=== PATIENT | female | born 1965 | race Caucasian/White ===

== ENCOUNTER 2016-08-10 18:29 | Emergency (ER) | payer SELFPAY ==
[2016-08-10] MEDS ORDERED: XYLOCAINE 1% HCL 20 ML MDV IJ ONE (19:44)
[2016-08-10] MEDS ORDERED: XYLOCAINE 1% HCL 20 ML MDV ONE (19:47)
[2016-08-10] MEDS ORDERED: Adacel Vial IM ONE (19:49)
--- NOTE | 2016-08-10 20:05 | ERPHSYRPT ---
- History of Present Illness Time Seen by Provider: 08/10/16 19:44 Source: patient, family Exam Limitations: no limitations Patient Subjective Stated Complaint: pt states she has a fish hook stuck in her thumb. states she thinks its all the way to the bone. Triage Nursing Assessment: pt alert and oriented, asnwers questions approp. skin pink warm and dry. respirations nonlabored with lungs cta. pt ambulatory with steady gait noted. fishing lure stuck in rt thumb. no bleeding noted. Physician History: The patient is a 50-year-old right-handed female with her daughter complaining of getting a fishhook stuck in her right thumb while fishing just prior to arrival. She denies numbness or tingling. Her tetanus vaccination is unknown. Timing/Duration: today Quality: painful Severity: mild Location: hands (right thumb) Possible Causes: other (fish hook) Allergies/Adverse Reactions: codeine Allergy (Intermediate, Verified 01/15/16 09:20) Rash Penicillins Allergy (Intermediate, Verified 01/15/16 09:20) swelling, hives naproxen sodium [From Aleve] Allergy (Mild, Verified 01/15/16 09:20) I WAS GOING TO ibuprofen Allergy (Verified 08/10/16 18:52) morphine Adverse Reaction (Verified 01/15/16 09:20) increased hr, n/v Home Medications: No Home Meds 1 ea UD 08/10/16 [History] Hx Tetanus, Diphtheria Vaccination/Date Given: No Hx Influenza Vaccination/Date Given: No Hx Pneumococcal Vaccination/Date Given: No Immunizations Up to Date: No - Review of Systems Constitutional: No Fever, No Chills Eyes: No Symptoms Ears, Nose, & Throat: No Symptoms Respiratory: No Cough, No Dyspnea Cardiac: No Chest Pain, No Edema, No Syncope Abdominal/Gastrointestinal: No Abdominal Pain, No Nausea, No Vomiting, No Diarrhea Genitourinary Symptoms: No Dysuria Musculoskeletal: No Back Pain, No Neck Pain Skin: Other (FB) Neurological: No Dizziness, No Focal Weakness, No Sensory Changes Psychological: No Symptoms Endocrine: No Symptoms Hematologic/Lymphatic: No Symptoms Immunological/Allergic: No Symptoms All Other Systems: Reviewed and Negative - Past Medical History Pertinent Past Medical History: Yes Neurological History: Seizures Cardiac History: Arrhythmia Endocrine Medical History: Hypoglycemia - Past Surgical History Past Surgical History: Yes Female Surgical History: Tubal Ligation, Other - Social History Smoking Status: Current every day smoker How long have you smoked: YRS Exposure to second hand smoke: Yes Drug Use: none Patient Lives Alone: No - Female History Hx Last Menstrual Period: post Hx Now: No - Nursing Vital Signs Nursing Vital Signs: Initial Vital Signs Temperature 97.5 F Temperature Source Oral Pulse Rate 84 Respiratory Rate 22 Blood Pressure [Left Arm] 141/104 Pain Intensity 5 - Physical Exam General Appearance: no apparent distress, alert Eye Exam: PERRL/EOMI, eyes nml inspection Ears, Nose, Throat Exam: normal ENT inspection, pharynx normal, moist mucous membranes Neck Exam: normal inspection, non-tender, supple, full range of motion Respiratory Exam: normal breath sounds, lungs clear, No respiratory distress Cardiovascular Exam: regular rate/rhythm, normal heart sounds Gastrointestinal/Abdomen Exam: soft, mass, No tenderness Pelvic Exam: not done Rectal Exam: not done Back Exam: normal inspection, normal range of motion, No CVA tenderness, No vertebral tenderness Extremity Exam: normal inspection, normal range of motion Neurologic Exam: alert, oriented x 3, cooperative, normal mood/affect, sensation nml, No motor deficits Skin Exam: other (fishhook embedded in mid right thumb) SpO2 Interpretation: normal SpO2: 97 Oxygen Delivery: Room Air - Progress Progress: improved Progress Note: 08/10/16 20:08 10 mL of 1% lidocaine was injected in the proximal right thumb for a digital block. The shaft of the hook was cut. The hook was driven through and removed. Patient tolerated the procedure well. There were no complications. Counseled pt/family regarding: diagnosis - Departure Time of Disposition: 20:10 Departure Disposition: Home Clinical Impression: [place] injury to finger Condition: Stable Critical Care Time: No Additional Instructions: You had a fishhook embedded in her right thumb that was successfully removed. Take clindamycin 300 mg 3 times a day for 10 days. Take Tylenol as needed. Prescriptions: Clindamycin HCl 1 cap PO TID #30 capsule
[2016-08-10 20:26] VITALS: BP 118/70; PULSE 70; O2SAT 100
== END 2016-08-10 20:26 | disposition home or self-care (01) ==
LOC: ED 18:29
DX: S61.041A Puncture wound with foreign body of right thumb without damage to nail, initial encounter (principal)
CPT/HCPCS: 90471; 90715; 99283; 99284

== ENCOUNTER 2017-08-09 03:12 | Emergency (ER) | payer SELFPAY ==
[2017-08-09 03:23] VITALS: BP 158/104; PULSE 80; O2SAT 99
[2017-08-09] MEDS: CLEOCIN 150 MG CAPSULE PO ONE (03:44)
[2017-08-09] MEDS ORDERED: CLEOCIN 150 MG CAPSULE ONE (03:44)
--- NOTE | 2017-08-09 03:45 | ERPHSYRPT ---
- History of Present Illness Time Seen by Provider: 08/09/17 03:30 Source: patient Exam Limitations: no limitations Patient Subjective Stated Complaint: Pt arrives to ER with c/o jaw pain intermittently for past couple weeks states started in left jaw for 1 week with lump in jaw, moved to right side with lump, now back to left side no lump. Denies fever. States has 3 bad teeth. Triage Nursing Assessment: see above Physician History: Pt is c/o intermittent bilateral jaw pain for about 3 weeks. She has severe caries, noticed swelling of her left jaw 3 weeks ago, it has resolved after few days of drainage. She had similar scenario last week on the right side. She denies fever, severe headaches, vomiting, cough SOB, other complaints, she did not see a dentist, did not take antibiotics, or painkillers. She denies current swelling, she speaks in sentences, no stridor, wheezing or difficulty breathing. Timing/Duration: gradual onset Severity: severe ENT Location: facial, dental Prearrival Treatment: no prearrival treatment Modifying Factors: Improves With: nothing Associated Symptoms: jaw pain Allergies/Adverse Reactions: codeine Allergy (Intermediate, Verified 08/09/17 03:23) Rash Penicillins Allergy (Intermediate, Verified 08/09/17 03:23) swelling, hives naproxen sodium [From Aleve] Allergy (Mild, Verified 08/09/17 03:23) I WAS GOING TO ibuprofen Allergy (Verified 08/09/17 03:23) morphine Adverse Reaction (Verified 08/09/17 03:23) increased hr, n/v Home Medications: No Home Meds [No Home Meds] 1 [facility] ZACKERY 08/10/16 [History] Hx Tetanus, Diphtheria Vaccination/Date Given: No Hx Influenza Vaccination/Date Given: No Hx Pneumococcal Vaccination/Date Given: No - Review of Systems Constitutional: No Symptoms Ears, Nose, & Throat: Other (toothache, jaw pain) Respiratory: No Symptoms Abdominal/Gastrointestinal: No Symptoms All Other Systems: Reviewed and Negative - Past Medical History Pertinent Past Medical History: Yes Neurological History: Seizures Cardiac History: Arrhythmia Endocrine Medical History: Hypoglycemia - Past Surgical History Past Surgical History: Yes Female Surgical History: Tubal Ligation, Other - Social History Smoking Status: Current every day smoker How long have you smoked: YRS Exposure to second hand smoke: No Drug Use: none Patient Lives Alone: No - Female History Hx Now: No - Nursing Vital Signs Nursing Vital Signs: Initial Vital Signs Temperature 97.5 F 08/09/17 03:16 Pulse Rate 80 08/09/17 03:16 Respiratory Rate 18 08/09/17 03:16 Blood Pressure 158/104 08/09/17 03:16 O2 Sat by Pulse Oximetry 99 08/09/17 03:16 Pain Scale Pain Intensity 7 - Physical Exam General Appearance: no apparent distress Eye Exam: bilateral eye: PERRL, EOMI Ear Exam: bilateral ear: canal normal, TM normal Nasal Exam: normal inspection Throat Exam: pharynx normal, dental tenderness (severe caries on both sides, no gum swelling, purulent discharge), moist mucus membranes, No mandibular swelling , No maxillary swelling, No pharynx swelling, No tongue swollen, No tonsillar swelling, No voice changes Neck Exam: normal inspection, non-tender, supple, trachea midline, No JVD, No lymphadenopathy (R), No lymphadenopathy (L) Cardiovascular/Respiratory Exam: chest non-tender, normal breath sounds, regular rate/rhythm, no JVD, no respiratory distress Abdominal Exam: non-tender, soft, no organomegaly Neurologic Exam: alert, oriented x 3, normal mood/affect Skin Exam: normal color, warm, dry SpO2 Interpretation: normal SpO2: 99 Oxygen Delivery: Room Air - Course Nursing assessment & vital signs reviewed: Yes Ordered Tests: Medication Summary Discontinued Medications Generic Name Dose Route Start Last Admin Trade Name Freq PRN Reason Stop Dose Admin Clindamycin HCl 300 mg 08/09/17 03:35 Cleocin 150 Mg Capsule PO 08/09/17 03:36 STAT ONE - Progress Progress: unchanged Progress Note: 08/09/17 03:44 Pt has been afebrile, no sign of severe pain, or distress. - Departure Time of Disposition: 03:45 Departure Disposition: Home Clinical Impression: TMJ (temporomandibular joint syndrome), Dental caries Condition: Stable Critical Care Time: No Referrals: DOCTOR,NO FAMILY [Primary Care Provider] - Instructions: Tooth Abscess (DC), Dental Pain (DC), Tooth Decay, Adult (DC), Temporomandibular Joint (TMJ) Disorders (DC) Additional Instructions: Soft food for 2 weeks, follow up with dentist! Return if severe pain, vomiting, fever> 102 F or difficulty swallowing, breathing!
== END 2017-08-09 03:56 | disposition home or self-care (01) ==
LOC: ED 03:12
DX: M26.609 Unspecified temporomandibular joint disorder, unspecified side (principal); K02.9 Dental caries, unspecified; G40.909 Epilepsy, unspecified, not intractable, without status epilepticus; Z72.0 Tobacco use
CPT/HCPCS: 99283; A9270-GY

== ENCOUNTER 2017-11-13 13:40 | Emergency (ER) | payer OTHER ==
--- NOTE | 2017-11-13 14:08 | ERPHSYRPT ---
- History of Present Illness Time Seen by Provider: 11/13/17 14:03 Source: patient, family Exam Limitations: no limitations Patient Subjective Stated Complaint: pt here for not feeling well today, pt is poor historian,has multi cos, nausea, headach, back pain, anxious Triage Nursing Assessment: pt alert, resp easy, skin w/d/p, no edema noted, abd soft Physician History: The patient is a 52-year-old female with family complaining that she hasn't been feeling well since waking up this morning. She has vague complaints. Some of her complaints are nausea, low back pain, beginning to get a headache, and chest discomfort. She says she has feelings of anxiety that wash over her periodically making her feel terrible. The anxiety has been occurring for several years And has been getting worse recently. She has not seen a doctor in several years. She takes no prescription medicines. Her surgical history is significant for tubal ligation. Her past medical history significant for seizure disorder and migraines. She denies shortness of breath and sweating. Timing/Duration: today, hour(s) (7), sudden Severity: moderate Modifying Factors: Improves With: acetaminophen Associated Symptoms: nausea, chest pain, headaches, No vomiting, No abdominal pain, No shortness of breath, No heartburn, No diaphoresis, No cough, No chills Allergies/Adverse Reactions: codeine Allergy (Intermediate, Verified 11/13/17 13:59) Rash Penicillins Allergy (Intermediate, Verified 11/13/17 13:59) swelling, hives naproxen sodium [From Aleve] Allergy (Mild, Verified 11/13/17 13:59) I WAS GOING TO ibuprofen Allergy (Verified 11/13/17 13:59) morphine Adverse Reaction (Verified 11/13/17 13:59) increased hr, n/v Home Medications: No Home Meds [No Home Meds] 1 [facility] ZACKERY 08/10/16 [History] Hx Tetanus, Diphtheria Vaccination/Date Given: No Hx Influenza Vaccination/Date Given: No Hx Pneumococcal Vaccination/Date Given: No Immunizations Up to Date: Yes - Review of Systems Constitutional: No Fever, No Chills Eyes: No Symptoms Ears, Nose, & Throat: No Symptoms Respiratory: No Cough, No Dyspnea Cardiac: Chest Pain Abdominal/Gastrointestinal: Nausea, No Abdominal Pain, No Vomiting, No Diarrhea Genitourinary Symptoms: No Dysuria Musculoskeletal: Back Pain, No Neck Pain Skin: No Rash Neurological: No Dizziness, No Focal Weakness, No Sensory Changes Psychological: No Symptoms Endocrine: No Symptoms Hematologic/Lymphatic: No Symptoms Immunological/Allergic: No Symptoms All Other Systems: Reviewed and Negative - Past Medical History Pertinent Past Medical History: Yes Neurological History: Seizures Cardiac History: Arrhythmia Endocrine Medical History: Hypoglycemia - Past Surgical History Past Surgical History: Yes Female Surgical History: Dilation & Curettage, Tubal Ligation, Other - Social History Smoking Status: Current every day smoker How long have you smoked: YRS Exposure to second hand smoke: No Drug Use: none Patient Lives Alone: No - Female History Hx Last Menstrual Period: psot Hx Now: No - Nursing Vital Signs Nursing Vital Signs: Initial Vital Signs Temperature 98.0 F 11/13/17 13:49 Pulse Rate 71 11/13/17 13:49 Respiratory Rate 18 11/13/17 13:49 Blood Pressure 157/102 11/13/17 13:49 O2 Sat by Pulse Oximetry 99 11/13/17 13:49 Pain Scale Pain Intensity [] 5 Pain Intensity 4 - Physical Exam General Appearance: moderate distress (tearful), anxiety Eye Exam: PERRL/EOMI, eyes nml inspection Ears, Nose, Throat Exam: pharynx normal, moist mucous membranes, other (unable to visualize right TM due to cerumen impaction.) Neck Exam: normal inspection, non-tender, supple, full range of motion Respiratory Exam: normal breath sounds, lungs clear, No chest tenderness, No respiratory distress Cardiovascular Exam: regular rate/rhythm, normal heart sounds, normal peripheral pulses Gastrointestinal/Abdomen Exam: soft, normal bowel sounds, No tenderness, No mass Pelvic Exam: not done Rectal Exam: not done Back Exam: point tenderness (bilateral lumbar paraspinous muscles.) Extremity Exam: normal inspection, normal range of motion, pelvis stable Neurologic Exam: alert, oriented x 3, cooperative, normal mood/affect, nml cerebellar function, nml station & gait, sensation nml, No motor deficits Skin Exam: normal color, warm, dry, No rash Lymphatic Exam: No adenopathy SpO2 Interpretation: normal SpO2: 99 Oxygen Delivery: Room Air - Course EKG Interpreted by Me: RATE, Sinus Rhythm, NORMAL AXIS, NORMAL INTERVALS, NORMAL QRS, NORMAL ST-T, Other (No change in EKG compared to EKG 03/11/12.) - Radiology Exams Chest X-ray Interpretation: Reviewed by me, Teleradiologist Report (per Dr Guido.), Negative Ordered Tests: Active Orders 24 hr Category Date Time Status Clean Catch Urine Specimen STAT Care 11/13/17 14:18 Active IV Insertion STAT Care 11/13/17 14:18 Active CHEST 2 VIEWS (PA AND LAT) Stat Exams 11/13/17 14:19 Completed CBC W DIFF Stat Lab 11/13/17 14:29 Completed CMP Stat Lab 11/13/17 14:29 Completed LIPASE Stat Lab 11/13/17 14:29 Completed Lactic Acid Stat Lab 11/13/17 14:30 Completed TROPONIN Q3H Lab 11/13/17 14:29 Completed TROPONIN Q3H Lab 11/13/17 17:30 Ordered TROPONIN Q3H Lab 11/13/17 20:30 Ordered TROPONIN Q3H Lab 11/13/17 23:30 Ordered TROPONIN Q3H Lab 11/14/17 02:30 Ordered UA W/RFX UR CULTURE Stat Lab 11/13/17 14:29 Completed Urine Triage Profile Stat Lab 11/13/17 14:29 Completed Medication Summary Discontinued Medications Generic Name Dose Route Start Last Admin Trade Name Freq PRN Reason Stop Dose Admin Aspirin 324 mg 11/13/17 14:20 11/13/17 14:30 Baby Aspirin 81 Mg Chew PO 11/13/17 14:21 324 mg STAT ONE Administration Nitroglycerin 0.4 mg 11/13/17 14:20 11/13/17 14:31 Nitrostat 0.4 Mg (Ed) SL 11/13/17 14:21 Not Given STAT ONE Lab/Rad Data: Laboratory Result Diagrams 11/13/17 14:29 11/13/17 14:29 Laboratory Results 11/13/17 11/13/17 11/13/17 Range/Units 14:30 14:29 14:29 WBC (4.0-10.5) K/mm3 RBC (4.1-5.4) M/mm3 Hgb (12.0-16.0) gm/dl Hct (35-47) % MCV (78-100) fl MCH (26-32) pg MCHC (32-36) g/dl RDW (11.5-14.0) % Plt Count (150-450) K/mm3 MPV (6-9.5) fl Gran % (36.0-66.0) % Eos # (Auto) (0-0.5) Absolute Lymphs (auto) (1.0-4.6) Absolute Monos (auto) (0.0-1.3) Lymphocytes % (24.0-44.0) % Monocytes % (0.0-12.0) % Eosinophils % (0.00-5.0) % Basophils % (0.0-0.4) % Absolute Granulocytes (1.4-6.9) Basophils # (0-0.4) Sodium (137-145) mmol/L Potassium (3.5-5.1) mmol/L Chloride (98-107) mmol/L Carbon Dioxide (22-30) mmol/L Anion Gap (5-15) MEQ/L BUN (7-17) mg/dL Creatinine (0.52-1.04) mg/dL Estimated GFR ML/MIN Glucose (74-106) mg/dL Lactic Acid 0.7 (0.4-2.0) Calcium (8.4-10.2) mg/dL Total Bilirubin (0.2-1.3) mg/dL AST (14-36) U/L ALT (0-35) U/L Alkaline Phosphatase (38-126) U/L Troponin I (0.000-0.034) ng/mL Serum Total Protein (6.3-8.2) g/dL Albumin (3.5-5.0) g/dL Lipase (23-300) U/L Urine Color STRAW (YELLOW) Urine Appearance CLEAR (CLEAR) Urine pH 5.0 (5-6) Ur Specific Luckey 1.003 (1.005-1.025) Urine Protein NEGATIVE (Negative) Urine Ketones NEGATIVE (NEGATIVE) Urine Blood MODERATE (0-5) Lukas/ul Urine Nitrite NEGATIVE (NEGATIVE) Urine Bilirubin NEGATIVE (NEGATIVE) Urine Urobilinogen NEGATIVE (0-1) mg/dL Ur Leukocyte Esterase NEGATIVE (NEGATIVE) Urine WBC (Auto) 0-2 (0-5) /HPF Urine RBC (Auto) 0-2 (0-2) /HPF U Epithel Cells (Auto) RARE (FEW) /HPF Urine Mucus (Auto) SLIGHT (NEGATIVE) /HPF Urine Culture Reflexed NO (NO) Urine Glucose NEGATIVE (NEGATIVE) mg/dL Urine Opiates Level NEGATIVE (NEGATIVE) Ur Methadone NEGATIVE (NEGATIVE) Urine Barbiturates NEGATIVE (NEGATIVE) Ur Phencyclidine (PCP) NEGATIVE (NEGATIVE) Urine Amphetamine NEGATIVE (NEGATIVE) U Benzodiazepine Level NEGATIVE (NEGATIVE) Urine Cocaine NEGATIVE (NEGATIVE) Urine Marijuana (THC) NEGATIVE (NEGATIVE) 11/13/17 11/13/17 11/13/17 Range/Units 14:29 14:29 14:29 WBC 10.1 (4.0-10.5) K/mm3 RBC 4.87 (4.1-5.4) M/mm3 Hgb 15.6 (12.0-16.0) gm/dl Hct 45.9 (35-47) % MCV 94.3 (78-100) fl MCH 32.0 (26-32) pg MCHC 34.0 (32-36) g/dl RDW 13.3 (11.5-14.0) % Plt Count 349 (150-450) K/mm3 MPV 9.3 (6-9.5) fl Gran % 69.4 H (36.0-66.0) % Eos # (Auto) 0.13 (0-0.5) Absolute Lymphs (auto) 2.25 (1.0-4.6) Absolute Monos (auto) 0.69 (0.0-1.3) Lymphocytes % 22.3 L (24.0-44.0) % Monocytes % 6.8 (0.0-12.0) % Eosinophils % 1.3 (0.00-5.0) % Basophils % 0.2 (0.0-0.4) % Absolute Granulocytes 7.02 H (1.4-6.9) Basophils # 0.02 (0-0.4) Sodium 143 (137-145) mmol/L Potassium 4.1 (3.5-5.1) mmol/L Chloride 106 (98-107) mmol/L Carbon Dioxide 27 (22-30) mmol/L Anion Gap 13.0 (5-15) MEQ/L BUN 7 (7-17) mg/dL Creatinine 0.70 (0.52-1.04) mg/dL Estimated GFR > 60.0 ML/MIN Glucose 107 H (74-106) mg/dL Lactic Acid (0.4-2.0) Calcium 9.7 (8.4-10.2) mg/dL Total Bilirubin 0.40 (0.2-1.3) mg/dL AST 24 (14-36) U/L ALT 22 (0-35) U/L Alkaline Phosphatase 106 (38-126) U/L Troponin I < 0.012 (0.000-0.034) ng/mL Serum Total Protein 7.9 (6.3-8.2) g/dL Albumin 4.8 (3.5-5.0) g/dL Lipase 90 (23-300) U/L Urine Color (YELLOW) Urine Appearance (CLEAR) Urine pH (5-6) Ur Specific Luckey (1.005-1.025) Urine Protein (Negative) Urine Ketones (NEGATIVE) Urine Blood (0-5) Lukas/ul Urine Nitrite (NEGATIVE) Urine Bilirubin (NEGATIVE) Urine Urobilinogen (0-1) mg/dL Ur Leukocyte Esterase (NEGATIVE) Urine WBC (Auto) (0-5) /HPF Urine RBC (Auto) (0-2) /HPF U Epithel Cells (Auto) (FEW) /HPF Urine Mucus (Auto) (NEGATIVE) /HPF Urine Culture Reflexed (NO) Urine Glucose (NEGATIVE) mg/dL Urine Opiates Level (NEGATIVE) Ur Methadone (NEGATIVE) Urine Barbiturates (NEGATIVE) Ur Phencyclidine (PCP) (NEGATIVE) Urine Amphetamine (NEGATIVE) U Benzodiazepine Level (NEGATIVE) Urine Cocaine (NEGATIVE) Urine Marijuana (THC) (NEGATIVE) - Progress Progress: improved Progress Note: 11/13/17 14:24 The patient was stating she has anxiety and appears to be very anxious. I explained to her that I will wanted to give her Ativan by IV for her anxiety. I also explained to her I will was giving her Zofran by IV for her nausea. The patient suddenly declined the Ativan and Zofran because she was afraid that it would kill her. The patient is now going to be offered aspirin and nitroglycerin for her chest pain. 11/13/17 14:44 Pt accepted ASA 324 mg but declined NG 0.4 SL. Counseled pt/family regarding: lab results, diagnosis, need for follow-up, rad results - Departure Time of Disposition: 15:34 Departure Disposition: Home Clinical Impression: Anxiety Condition: Stable Critical Care Time: No Referrals: DOCTOR,NO FAMILY [Primary Care Provider] - Additional Instructions: You have anxiety with a mild panic attack. You declined Ativan for the anxiety and you declined Zofran for the nausea. I urge you to find a primary medical doctor and follow-up.
[2017-11-13] MEDS ORDERED: BABY ASPIRIN 81 MG CHEW PO ONE (14:20)
[2017-11-13] MEDS ORDERED: Nitrostat 0.4 MG (ED) SL ONE (14:20)
[2017-11-13 14:43] LABS: BASOPHIL % 0.2 % (0.0-0.4); Basophil (Absolute #) 0.02 (0-0.4); Eosinophil % 1.3 % (0.00-5.0); Eosinophil (Absolute #) 0.13 (0-0.5); Granulocyte Absolute (ANC) 7.02 (1.4-6.9); Granulocytes % 69.4 % (36.0-66.0); Hematocrit 45.9 % (35-47); Hemoglobin 15.6 gm/dl (12.0-16.0); Lymphocyte (Absolute #) 2.25 (1.0-4.6); Lymphocytes % 22.3 % (24.0-44.0); Mean Cell Volume 94.3 fl (78-100); Mean Platelet Volume 9.3 fl (6-9.5); Monocyte (Absolute #) 0.69 (0.0-1.3); Monocytes % 6.8 % (0.0-12.0); Platelet Count 349 K/mm3 (150-450); Red Blood Count 4.87 M/mm3 (4.1-5.4); Red Cell Distribution Width 13.3 % (11.5-14.0); White Blood Count 10.1 K/mm3 (4.0-10.5)
[2017-11-13 14:49] LABS: Appearance CLEAR (CLEAR); Bilirubin NEGATIVE (NEGATIVE); Blood MODERATE Ery/ul (0-5); Glucose NEGATIVE (NEGATIVE); Ketones NEGATIVE (NEGATIVE); Leukocyte Esterase NEGATIVE (NEGATIVE); Nitrite NEGATIVE (NEGATIVE); Protein,Urine Dip NEGATIVE (Negative); Specific Gravity 1.003 (1.005-1.025); Urobilinogen NEGATIVE mg/dL (0-1)
[2017-11-13 14:50] VITALS: PULSE 70
[2017-11-13 14:51] LABS: Amphetamine,Urine NEGATIVE (NEGATIVE); Barbiturate,Urine NEGATIVE (NEGATIVE); Benzodiazepine,Urine NEGATIVE (NEGATIVE); Cocaine,Urine NEGATIVE (NEGATIVE); Methadone,Urine NEGATIVE (NEGATIVE); Opiate,Urine NEGATIVE (NEGATIVE); PCP,Urine NEGATIVE (NEGATIVE); THC,Urine NEGATIVE (NEGATIVE)
--- NOTE | 2017-11-13 14:51 | XRAY ---
Indication: Chest pain. Comparison: March 11, 2012. PA/lateral chest again demonstrates normal heart and lungs. Bony thorax intact with minimal degenerative changes. No new/acute findings.
[2017-11-13 15:11] VITALS: BP 120/93
[2017-11-13 15:11] LABS: ALBUMIN 4.8 g/dL (3.5-5.0); ALKALINE PHOSPHATASE 106 U/L (38-126); BLOOD UREA NITROGEN 7 mg/dL (7-17); CHLORIDE 106 mmol/L (98-107); Calcium 9.7 mg/dL (8.4-10.2); Carbon Dioxide 27 mmol/L (22-30); Glucose 107 mg/dL (74-106); LIPASE 90 U/L (23-300); Potassium 4.1 mmol/L (3.5-5.1); SGOT/AST 24 U/L (14-36); SGPT/ALT 22 U/L (0-35); SODIUM 143 mmol/L (137-145); Total Protein 7.9 g/dL (6.3-8.2)
[2017-11-13 15:36] VITALS: O2SAT 99
== END 2017-11-13 15:59 | disposition home or self-care (01) ==
LOC: ED 13:40
DX: F41.9 Anxiety disorder, unspecified (principal); G40.909 Epilepsy, unspecified, not intractable, without status epilepticus; E16.2 Hypoglycemia, unspecified; Z72.0 Tobacco use
CPT/HCPCS: 36000; 36415; 71046; 80053; 80307; 81001; 83605; 83690; 84484; 85025; 99284; A9270-GY

== ENCOUNTER 2018-02-21 13:39 | Emergency (ER) | payer MEDICAID, OTHER ==
[2018-02-21 14:16] VITALS: BP 155/89; PULSE 80; O2SAT 98
--- NOTE | 2018-02-21 14:38 | ERPHSYRPT ---
- History of Present Illness Time Seen by Provider: 02/21/18 14:18 Source: patient Exam Limitations: no limitations Patient Subjective Stated Complaint: HAS HAD URI SYMPTOMS FOR TWO WEEKS. WORKS A [employer] AND EVERYONE HAS BEEN SICK AT WORK. IS NEEDING A WORK SLIP FOR YESTERDAY AND TODAY. Triage Nursing Assessment: AMBULATED TO ROOM PER SELF. SKIN W/D, COLOR NORMAL, RESP NONLABORED. Physician History: This is a 52-year-old white female she of has a history of seizures, arrhythmia , hypoglycemia She arrives with complaint of upper respiratory infection including sinus congestion cough symptoms going on for 2 weeks. She states that she works as a [employer] and that many people at her facility is a been having this she states she missed work yesterday. She states she is feeling of somewhat better today but still having congestion. She has not had any fevers no nausea no vomiting/ Past medical history includes seizures, arrhythmia, hypoglycemia Past surgical history includes D&C, tubal ligation Social history includes tobacco use Timing/Duration: week(s) (2 weeks) Severity: moderate Modifying Factors: Improves With: nothing Associated Symptoms: cough, other (nasal congestion), No nausea, No vomiting, No abdominal pain, No shortness of breath, No heartburn, No diaphoresis, No chills, No chest pain, No fever, No headaches, No loss of appetite, No malaise, No rash, No syncope, No seizure, No weakness Allergies/Adverse Reactions: codeine Allergy (Intermediate, Verified 02/21/18 14:07) Rash Penicillins Allergy (Intermediate, Verified 02/21/18 14:07) swelling, hives naproxen sodium [From Aleve] Allergy (Mild, Verified 02/21/18 14:07) I WAS GOING TO ibuprofen Allergy (Verified 02/21/18 14:07) morphine Adverse Reaction (Verified 02/21/18 14:07) increased hr, n/v Home Medications: No Home Meds [No Home Meds] 1 [facility] 08/10/16 [History] Hx Tetanus, Diphtheria Vaccination/Date Given: No Hx Influenza Vaccination/Date Given: No Hx Pneumococcal Vaccination/Date Given: No - Review of Systems Constitutional: No Fever, No Chills Eyes: No Symptoms Ears, Nose, & Throat: Nose Discharge, Sinus Drainage, No Ear Pain, No Ear Discharge, No Hearing Changes, No Tinnitus, No Nose Pain, No Nose Congestion, No Mouth Pain, No Mouth Swelling, No Loose Teeth, No Throat Pain, No Throat Swelling, No Hoarse, No Painful Swallowing, No Snoring Respiratory: Cough, No Cyanosis, No Dyspnea, No Dyspnea on Exertion (PATEL), No Stridor, No Wheezing Cardiac: No Chest Pain, No Edema, No Syncope Abdominal/Gastrointestinal: No Abdominal Pain, No Nausea, No Vomiting, No Diarrhea Genitourinary Symptoms: No Dysuria Musculoskeletal: No Back Pain, No Neck Pain Skin: No Rash Neurological: No Dizziness, No Focal Weakness, No Sensory Changes Psychological: No Symptoms Endocrine: No Symptoms All Other Systems: Reviewed and Negative - Past Medical History Pertinent Past Medical History: Yes Neurological History: Seizures Cardiac History: Arrhythmia Endocrine Medical History: Hypoglycemia - Past Surgical History Past Surgical History: Yes Female Surgical History: Dilation & Curettage, Tubal Ligation, Other - Social History Smoking Status: Current every day smoker How long have you smoked: YRS Exposure to second hand smoke: No Drug Use: none Patient Lives Alone: No - Female History Hx Now: No - Nursing Vital Signs Nursing Vital Signs: Initial Vital Signs Temperature 97.4 F 02/21/18 14:04 Pulse Rate 80 02/21/18 14:04 Respiratory Rate 16 02/21/18 14:04 Blood Pressure 155/89 02/21/18 14:04 O2 Sat by Pulse Oximetry 98 02/21/18 14:04 Pain Scale Pain Intensity 0 - Physical Exam General Appearance: no apparent distress, alert Eye Exam: PERRL/EOMI, eyes nml inspection, other (fundi are unremarkable) Ears, Nose, Throat Exam: TMs normal, other (positive nasal drainage), No pharyngeal erythema Neck Exam: normal inspection, non-tender, supple, full range of motion Respiratory Exam: normal breath sounds, lungs clear, No respiratory distress Cardiovascular Exam: regular rate/rhythm, normal heart sounds, normal peripheral pulses, capillary refill <2 sec Gastrointestinal/Abdomen Exam: soft, normal bowel sounds, No tenderness, No mass Back Exam: normal inspection, normal range of motion, No CVA tenderness, No vertebral tenderness Extremity Exam: normal inspection, normal range of motion, pelvis stable Neurologic Exam: alert, oriented x 3, cooperative, 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 Patient missed work yesterday she states she is feeling better today not completely cleared. Will go ahead and discharge patient for URI. Patient to return to work in 2 days - Departure Time of Disposition: 14:38 Departure Disposition: Home Clinical Impression: URI (upper respiratory infection) Condition: Fair Critical Care Time: No Referrals: DOCTOR,NO FAMILY [Primary Care Provider] - Additional Instructions: Return home. Plenty of fluids. Tylenol every 4 hours as needed for pain. Follow-up with your family doctor if symptoms are worse no better in 48-72 hours or persist longer than one week. Return for acute distress or for severe symptoms.
== END 2018-02-21 14:52 | disposition home or self-care (01) ==
LOC: ED 13:39
DX: J06.9 Acute upper respiratory infection, unspecified (principal); G40.909 Epilepsy, unspecified, not intractable, without status epilepticus; Z72.0 Tobacco use
CPT/HCPCS: 99283

== ENCOUNTER 2018-03-05 18:12 | Emergency (ER) | payer MEDICAID ==
[2018-03-05] MEDS ORDERED: ROCEPHIN 1 Gm-D5w 50 ml Bag** 1 G/50 ML IVPB IV STA (19:25)
[2018-03-05] MEDS ORDERED: Zithromax 500 MG/ 250 ML NaCl Premix 500 MG/250 ML IVPB IV STA (19:25)
[2018-03-05] MEDS ORDERED: Sodium Chloride 0.9% 1000 ML 1,000 ML IV STA (19:25)
[2018-03-05 19:49] LABS: BASOPHIL % 0.3 % (0.0-0.4); Basophil (Absolute #) 0.03 (0-0.4); Eosinophil % 2.9 % (0.00-5.0); Eosinophil (Absolute #) 0.25 (0-0.5); Granulocytes % 51.8 % (36.0-66.0); Lymphocyte (Absolute #) 3.19 (1.0-4.6); Lymphocytes % 36.7 % (24.0-44.0); Mean Corpuscular Hemoglobin 31.3 pg (26-32); Mean Corpuscular Hgb Concent. 32.6 g/dl (32-36); Mean Platelet Volume 8.9 fl (6-9.5); Monocyte (Absolute #) 0.72 (0.0-1.3); Monocytes % 8.3 % (0.0-12.0); Platelet Count 362 K/mm3 (150-450); Red Blood Count 4.48 M/mm3 (4.1-5.4); Red Cell Distribution Width 13.2 % (11.5-14.0); White Blood Count 8.7 K/mm3 (4.0-10.5)
[2018-03-05 20:03] LABS: ALBUMIN 4.4 g/dL (3.5-5.0); ALKALINE PHOSPHATASE 97 U/L (38-126); ANION GAP 11.4 MEQ/L (5-15); BLOOD UREA NITROGEN 7 mg/dL (7-17); CHLORIDE 105 mmol/L (98-107); Calcium 9.3 mg/dL (8.4-10.2); Carbon Dioxide 29 mmol/L (22-30); Creatinine 1 0.72 mg/dL (0.52-1.04); Glucose 98 mg/dL (74-106); Potassium 3.8 mmol/L (3.5-5.1); SGOT/AST 19 U/L (14-36); SGPT/ALT 17 U/L (0-35); SODIUM 142 mmol/L (137-145); Total Protein 7.7 g/dL (6.3-8.2)
[2018-03-05 20:04] LABS: Appearance SLIGHTLY CLOUDY (CLEAR); Bacteria FEW /HPF (NEGATIVE); Bilirubin NEGATIVE (NEGATIVE); Blood MODERATE Ery/ul (0-5); Epithelial Cells MODERATE /HPF (FEW); Glucose NEGATIVE (NEGATIVE); Hyaline Casts 0-2 /LPF (0-2); Ketones NEGATIVE (NEGATIVE); Leukocyte Esterase NEGATIVE (NEGATIVE); Mucus MODERATE /HPF (NEGATIVE); Nitrite NEGATIVE (NEGATIVE); Protein,Urine Dip NEGATIVE (Negative); Urobilinogen NEGATIVE mg/dL (0-1)
[2018-03-05] MEDS ORDERED: ROCEPHIN 1 Gm-D5w 50 ml Bag** 1 G/50 ML IVPB IV ONE (20:04)
[2018-03-05] MEDS ORDERED: Sodium Chloride 0.9% 1000 ML 1,000 ML ONE (20:04)
[2018-03-05] MEDS ORDERED: Zithromax 500 MG/ 250 ML NaCl Premix 500 MG/250 ML IVPB IV ONE (20:04)
[2018-03-05 20:36] LABS: INFLUENZA A NEGATIVE (NEGATIVE); INFLUENZA B NEGATIVE (NEGATIVE); RESPIRATORY SYNCTIAL VIRUS NEGATIVE (Negative)
--- NOTE | 2018-03-05 20:57 | ERPHSYRPT ---
- History of Present Illness Source: patient Exam Limitations: no limitations Patient Subjective Stated Complaint: pt states she has had a cough since december and now has pain in her lungs, slightly upset stomach. states she has been coughing up white phlegm and has had a runny nose. Triage Nursing Assessment: pt alert and oriented, answers questions approp. respirations nonlabored with lungs cta. skin pink warm and dry. occasional cough noted. pt ambulatory with steady gait noted. Physician History: Pt states, had URI for a few weeks. She states, coughing, having green nasal discharge and sputum. No F/C/S. Pt denies vomiting. She does have nausea. No abdominal pain. Timing/Duration: week(s) Cough Quality/Degree: moderate, productive cough, sputum (green) Associated Symptoms: chest pain/soreness, cough Allergies/Adverse Reactions: codeine Allergy (Intermediate, Verified 03/05/18 19:17) Rash Penicillins Allergy (Intermediate, Verified 03/05/18 19:17) swelling, hives naproxen sodium [From Aleve] Allergy (Mild, Verified 03/05/18 19:17) I WAS GOING TO ibuprofen Allergy (Verified 03/05/18 19:17) morphine Adverse Reaction (Verified 03/05/18 19:17) increased hr, n/v Home Medications: No Home Meds [No Home Meds] 1 [facility] 08/10/16 [History] Hx Tetanus, Diphtheria Vaccination/Date Given: No Hx Influenza Vaccination/Date Given: No Hx Pneumococcal Vaccination/Date Given: No Immunizations Up to Date: No - Review of Systems Constitutional: No Fever, No Chills Eyes: No Symptoms Ears, Nose, & Throat: No Symptoms Respiratory: Cough Cardiac: No Chest Pain, No Edema, No Syncope Abdominal/Gastrointestinal: No Abdominal Pain, No Nausea, No Vomiting, No Diarrhea Genitourinary Symptoms: No Dysuria Musculoskeletal: No Back Pain, No Neck Pain - Past Medical History Pertinent Past Medical History: Yes Neurological History: Seizures Cardiac History: Arrhythmia Endocrine Medical History: Hypoglycemia - Past Surgical History Past Surgical History: Yes Female Surgical History: Dilation & Curettage, Tubal Ligation, Other - Social History Smoking Status: Current every day smoker How long have you smoked: YRS Exposure to second hand smoke: No Drug Use: none Patient Lives Alone: No - Nursing Vital Signs Nursing Vital Signs: Initial Vital Signs Temperature 97.7 F 03/05/18 19:08 Pulse Rate 85 03/05/18 19:08 Respiratory Rate 16 03/05/18 19:08 Blood Pressure 128/89 03/05/18 19:08 O2 Sat by Pulse Oximetry 98 03/05/18 19:08 Pain Scale Pain Intensity 5 - Physical Exam General Appearance: no apparent distress, alert Eye Exam: PERRL/EOMI, eyes nml inspection Ears, Nose, Throat Exam: normal ENT inspection, TMs normal, pharynx normal, moist mucous membranes Respiratory Exam: normal breath sounds, lungs clear, No respiratory distress Cardiovascular Exam: regular rate/rhythm, normal heart sounds Gastrointestinal/Abdomen Exam: soft, No tenderness SpO2: 98 - Course Nursing assessment & vital signs reviewed: Yes - Radiology Exams Chest X-ray Interpretation: Interpreted by me (Clear chest) Ordered Tests: Active Orders 24 hr Category Date Time Status CHEST 2 VIEWS (PA AND LAT) Stat Exams 03/05/18 19:27 Taken CBC W DIFF Stat Lab 03/05/18 19:45 Completed CMP Stat Lab 03/05/18 19:45 Completed CULTURE,URINE Stat Lab 03/05/18 19:34 Received HCG,QUALITATIVE URINE Stat Lab 03/05/18 19:34 Completed Lactic Acid Stat Lab 03/05/18 19:55 Completed UA W/RFX UR CULTURE Stat Lab 03/05/18 19:34 Completed Medication Summary Discontinued Medications Generic Name Dose Route Start Last Admin Trade Name Freq PRN Reason Stop Dose Admin Ceftriaxone Sodium/Dextrose 1 g in 50 mls @ 100 mls/hr 03/05/18 19:25 20:07 Rocephin 1 Gm-D5w 50 Ml Bag IV 03/05/18 19:54 100 ml/hr STAT STA 100 mls/hr Administration Sodium Chloride 1,000 mls @ 999 mls/hr 03/05/18 19:25 03/05/18 20:06 Sodium Chloride 0.9% 1000 Ml IV 03/05/18 20:25 999 mls/hr .Q1H1M STA Administration Azithromycin 500 mg in 250 mls @ 250 mls/hr 03/05/18 19:25 Zithromax 500 Mg/ 250 Ml Nacl Premix IV 03/05/18 20:24 STAT STA Azithromycin Confirm 03/05/18 20:04 Zithromax 500 Mg/ 250 Ml Nacl Premix Administered 03/05/18 20:05 Dose 500 mg in 250 mls @ ud IV .STK-MED ONE Sodium Chloride Confirm 03/05/18 20:04 Sodium Chloride 0.9% 1000 Ml Administered 03/05/18 20:05 Dose 1,000 mls @ ud .ROUTE .STK-MED ONE Ceftriaxone Sodium/Dextrose Confirm 03/05/18 20:04 Rocephin 1 Gm-D5w 50 Ml Bag Administered 03/05/18 20:05 Dose 1 g in 50 mls @ ud IV .STK-MED ONE Lab/Rad Data: Laboratory Result Diagrams 03/05/18 19:45 03/05/18 19:45 Laboratory Results 03/05/18 03/05/18 03/05/18 Range/Units 19:55 19:45 19:45 WBC (4.0-10.5) K/mm3 RBC (4.1-5.4) M/mm3 Hgb (12.0-16.0) gm/dl Hct (35-47) % MCV (78-100) fl MCH (26-32) pg MCHC (32-36) g/dl RDW (11.5-14.0) % Plt Count (150-450) K/mm3 MPV (6-9.5) fl Gran % (36.0-66.0) % Eos # (Auto) (0-0.5) Absolute Lymphs (auto) (1.0-4.6) Absolute Monos (auto) (0.0-1.3) Lymphocytes % (24.0-44.0) % Monocytes % (0.0-12.0) % Eosinophils % (0.00-5.0) % Basophils % (0.0-0.4) % Absolute Granulocytes (1.4-6.9) Basophils # (0-0.4) Sodium 142 (137-145) mmol/L Potassium 3.8 (3.5-5.1) mmol/L Chloride 105 (98-107) mmol/L Carbon Dioxide 29 (22-30) mmol/L Anion Gap 11.4 (5-15) MEQ/L BUN 7 (7-17) mg/dL Creatinine 0.72 (0.52-1.04) mg/dL Estimated GFR > 60.0 ML/MIN Glucose 98 (74-106) mg/dL Lactic Acid 0.5 (0.4-2.0) Calcium 9.3 (8.4-10.2) mg/dL Total Bilirubin 0.50 (0.2-1.3) mg/dL AST 19 (14-36) U/L ALT 17 (0-35) U/L Alkaline Phosphatase 97 (38-126) U/L Serum Total Protein 7.7 (6.3-8.2) g/dL Albumin 4.4 (3.5-5.0) g/dL Urine Color (YELLOW) Urine Appearance (CLEAR) Urine pH (5-6) Ur Specific [place] (1.005-1.025) Urine Protein (Negative) Urine Ketones (NEGATIVE) Urine Blood (0-5) Lukas/ul Urine Nitrite (NEGATIVE) Urine Bilirubin (NEGATIVE) Urine Urobilinogen (0-1) mg/dL Ur Leukocyte Esterase (NEGATIVE) Urine WBC (Auto) (0-5) /HPF Urine RBC (Auto) (0-2) /HPF U Hyaline Cast (Auto) (0-2) /LPF U Epithel Cells (Auto) (FEW) /HPF Urine Bacteria (Auto) (NEGATIVE) /HPF Unidentified Crystals (NEGATIVE) /HPF Urine Mucus (Auto) (NEGATIVE) /HPF Urine Culture Reflexed (NO) Urine Glucose (NEGATIVE) mg/dL Urine HCG, Qual (Negative) Influenza Type A Ag NEGATIVE (NEGATIVE) Influenza Type B Ag NEGATIVE (NEGATIVE) RSV (PCR) NEGATIVE (Negative) 03/05/18 03/05/18 03/05/18 Range/Units 19:45 19:34 19:34 WBC 8.7 (4.0-10.5) K/mm3 RBC 4.48 (4.1-5.4) M/mm3 Hgb 14.0 (12.0-16.0) gm/dl Hct 43.0 (35-47) % MCV 96.0 (78-100) fl MCH 31.3 (26-32) pg MCHC 32.6 (32-36) g/dl RDW 13.2 (11.5-14.0) % Plt Count 362 (150-450) K/mm3 MPV 8.9 (6-9.5) fl Gran % 51.8 (36.0-66.0) % Eos # (Auto) 0.25 (0-0.5) Absolute Lymphs (auto) 3.19 (1.0-4.6) Absolute Monos (auto) 0.72 (0.0-1.3) Lymphocytes % 36.7 (24.0-44.0) % Monocytes % 8.3 (0.0-12.0) % Eosinophils % 2.9 (0.00-5.0) % Basophils % 0.3 (0.0-0.4) % Absolute Granulocytes 4.50 (1.4-6.9) Basophils # 0.03 (0-0.4) Sodium (137-145) mmol/L Potassium (3.5-5.1) mmol/L Chloride (98-107) mmol/L Carbon Dioxide (22-30) mmol/L Anion Gap (5-15) MEQ/L BUN (7-17) mg/dL Creatinine (0.52-1.04) mg/dL Estimated GFR ML/MIN Glucose (74-106) mg/dL Lactic Acid (0.4-2.0) Calcium (8.4-10.2) mg/dL Total Bilirubin (0.2-1.3) mg/dL AST (14-36) U/L ALT (0-35) U/L Alkaline Phosphatase (38-126) U/L Serum Total Protein (6.3-8.2) g/dL Albumin (3.5-5.0) g/dL Urine Color YELLOW (YELLOW) Urine Appearance SLIGHTLY CLOUDY (CLEAR) Urine pH 5.0 (5-6) Ur Specific [place] 1.020 (1.005-1.025) Urine Protein NEGATIVE (Negative) Urine Ketones NEGATIVE (NEGATIVE) Urine Blood MODERATE (0-5) Lukas/ul Urine Nitrite NEGATIVE (NEGATIVE) Urine Bilirubin NEGATIVE (NEGATIVE) Urine Urobilinogen NEGATIVE (0-1) mg/dL Ur Leukocyte Esterase NEGATIVE (NEGATIVE) Urine WBC (Auto) 6-10 (0-5) /HPF Urine RBC (Auto) 16-25 (0-2) /HPF U Hyaline Cast (Auto) 0-2 (0-2) /LPF U Epithel Cells (Auto) MODERATE (FEW) /HPF Urine Bacteria (Auto) FEW (NEGATIVE) /HPF Unidentified Crystals 2-5 (NEGATIVE) /HPF Urine Mucus (Auto) MODERATE (NEGATIVE) /HPF Urine Culture Reflexed YES (NO) Urine Glucose NEGATIVE (NEGATIVE) mg/dL Urine HCG, Qual NEGATIVE (Negative) Influenza Type A Ag (NEGATIVE) Influenza Type B Ag (NEGATIVE) RSV (PCR) (Negative) - Progress Progress: unchanged Air Movement: fair Progress Note: 03/05/18 20:55 Pt had a chest XR that did not show any pathology. She did get Rocephin and Azithromycin in the ER. No nebulizer treatment was needed. Pt did not require any O2. Flu work up was negative. Blood Culture(s) Obtained: No Antibiotics given: Yes Will see patient in: office (Pt shoul have a PCP and f/u.) Counseled pt/family regarding: need for follow-up - Departure Time of Disposition: 20:57 Departure Disposition: Home Clinical Impression: Bronchitis Condition: Stable Critical Care Time: No Referrals: DOCTOR,NO FAMILY [Primary Care Provider] - Additional Instructions: F/U with your PCP of choice. Finish ABX as ordered, and avoid smoking. Forms: Providers Accepting New PT'S Prescriptions: Doxycycline Hyclate 100 mg [Vibramycin 100 MG] 100 mg PO BID 10 Days #20 tab
[2018-03-05 22:25] VITALS: BP 121/83; PULSE 75; O2SAT 99
--- NOTE | 2018-03-06 08:57 | XRAY ---
Indication: Chest pain, cough, congestion 2 months. Comparison: November 13, 2017. PA/lateral chest again demonstrates normal heart and lungs with mild bony degenerative changes. No new/acute findings.
== END 2018-03-05 22:25 | disposition home or self-care (01) ==
LOC: ED 18:12
DX: J40 Bronchitis, not specified as acute or chronic (principal); Z72.0 Tobacco use; G40.909 Epilepsy, unspecified, not intractable, without status epilepticus
CPT/HCPCS: 36000; 36415; 71046; 80053; 81001; 83605; 84703; 85025; 87086; 87631; 96360; 96361; 96365; 96367; 99284; J0456; J0696

== ENCOUNTER 2018-03-06 14:54 | Emergency (ER) | payer MEDICAID ==
--- NOTE | 2018-03-06 15:20 | ERPHSYRPT ---
- History of Present Illness Time Seen by Provider: 03/06/18 15:15 Source: patient Exam Limitations: no limitations Physician History: This is a 52-year-old white female with history of seizures, arrhythmia, hypoglycemia who was seen here yesterday with complaints of a cough since December On arrival patient apparently had clear lung lorenzo he had labs which included CBC CMP troponin d-dimer chest x-ray all which were negative Patient apparently had been given Rocephin as well as Zithromax IV she was also given a prescription for doxycycline to be taken at home which apparently the patient has not filled. The patient arrives states she continues to feel short of breath. Past medical history includes arrhythmia, seizures, hypoglycemia Past surgical history includes D&C, tubal ligation Timing/Duration: other (short of breath since December, worse since yesterday) Activities at Onset: none Severity of Dyspnea-Max: moderate Severity of Dyspnea-Current: moderate Possible Cause: occasional episodes (patient seen here yesterday for the same, negative workup) Modifying Factors: Improves With: nothing Associated Symptoms: constant, anxiety, cough, No intermittent, No chest pain/ discomfort, No edema, No fever, No insomnia, No loss of appetite, No lightheadedness, No wheezing, No weakness, No ankle swelling, No chills, No hemoptysis, No calf pain, No dizziness, No heaviness, No heart racing, No lightheadedness, No leg swelling, No muscle spasms feet, No muscle spasms hands , No painful breathing, No productive cough, No sweating, No tightness, No tingling face International travel in last 2 weeks: No Allergies/Adverse Reactions: codeine Allergy (Intermediate, Verified 03/06/18 15:25) Rash Penicillins Allergy (Intermediate, Verified 03/06/18 15:25) swelling, hives naproxen sodium [From Aleve] Allergy (Mild, Verified 03/06/18 15:25) I WAS GOING TO ibuprofen Allergy (Verified 03/06/18 15:25) morphine Adverse Reaction (Verified 03/06/18 15:25) increased hr, n/v Home Medications: No Reportable Medications [No Reported Medications] 03/06/18 [History] Hx Tetanus, Diphtheria Vaccination/Date Given: No Hx Influenza Vaccination/Date Given: No Hx Pneumococcal Vaccination/Date Given: No - Review of Systems Constitutional: No Fever, No Chills Eyes: No Symptoms Ears, Nose, & Throat: No Symptoms Respiratory: Cough, Dyspnea Cardiac: No Symptoms, Chest Pain (chest pain with coughing) Abdominal/Gastrointestinal: No Abdominal Pain, No Nausea, No Vomiting, No Diarrhea Genitourinary Symptoms: No Dysuria Musculoskeletal: No Back Pain, No Neck Pain Skin: No Rash Neurological: No Dizziness, No Focal Weakness, No Sensory Changes Psychological: No Symptoms Endocrine: No Symptoms All Other Systems: Reviewed and Negative - Past Medical History Pertinent Past Medical History: Yes Neurological History: Seizures Cardiac History: Arrhythmia Endocrine Medical History: Hypoglycemia - Past Surgical History Past Surgical History: Yes Female Surgical History: Dilation & Curettage, Tubal Ligation, Other - Social History Smoking Status: Current every day smoker How long have you smoked: YRS Exposure to second hand smoke: No Drug Use: none Patient Lives Alone: No - Nursing Vital Signs Nursing Vital Signs: Initial Vital Signs Temperature 98.1 F 03/06/18 14:59 Pulse Rate 81 03/06/18 14:59 Respiratory Rate 20 03/06/18 14:59 Blood Pressure 154/93 03/06/18 14:59 O2 Sat by Pulse Oximetry 97 03/06/18 14:59 Pain Scale Pain Intensity 10 - Physical Exam General Appearance: moderate distress, alert, anxiety Eye Exam: PERRL/EOMI Ears, Nose, Throat Exam: hearing grossly normal, normal ENT inspection, normal pharynx, No abnormal TM (R), No abnormal TM (L), No sinus pain/drainage, No hearing decreased, No nasal congestion, No pharyngeal erythema, No tonsillar exudate, No tonsillar swelling Neck Exam: normal inspection, supple Respiratory Exam: normal breath sounds, lungs clear, airway intact Cardiovascular/Chest Exam: normal heart sounds, regular rate/rhythm Abdominal/Gastrointestinal Exam: soft, No tenderness, No distention, No mass Extremity Exam: non-tender, normal range of motion, normal inspection, no calf tenderness, no pedal edema Peripheral Pulses Exam: dorsalis-pedis (R): 2+, dorsalis-pedis (L): 2+ Neurologic Exam: alert, oriented x 3, cooperative, overlock waistline joiner II-XII nml as tested, sensation nml, No motor deficits Skin Exam: normal color, warm, No dry SpO2 Interpretation: normal - Course Nursing assessment & vital signs reviewed: Yes EKG Interpreted by Me: RATE (84 bpm), Sinus Rhythm, NORMAL AXIS, Other (EKG: Sinus rhythm, 84 bpm, normal axis,no acute ST or T wave changes normal EKG) - Radiology Exams Chest X-ray Interpretation: Discussed w/ radiologist (chest x-ray: Normal heart and lungs with mild bony degenerative changes. No new or acute findings.) Ordered Tests: Active Orders 24 hr Category Date Time Status Maintenance Planning Clerk STAT Care 03/06/18 15:13 Active EKG-ER Only STAT Care 03/06/18 15:12 Active IV Insertion STAT Care 03/06/18 15:12 Active Pulse Oximetry (ED) STAT Care 03/06/18 15:12 Active CHEST 1 VIEW (PORTABLE) Stat Exams 03/06/18 15:13 Completed AMYLASE Stat Lab 03/06/18 16:26 Completed ARTERIAL BLOOD GASES Stat Lab 03/06/18 15:12 Completed CBC W DIFF Stat Lab 03/06/18 15:20 Completed CMP Stat Lab 03/06/18 15:20 Completed D-DIMER QUANTITATION Stat Lab 03/06/18 15:20 Completed LIPASE Stat Lab 03/06/18 16:26 Completed NT PRO BNP Stat Lab 03/06/18 15:20 Completed TROPONIN Q3H Lab 03/06/18 15:15 Completed TROPONIN Q3H Lab 03/06/18 18:26 Completed TROPONIN Q3H Lab 03/06/18 21:15 Ordered TROPONIN Q3H Lab 03/07/18 00:15 Ordered TROPONIN Q3H Lab 03/07/18 03:15 Ordered Respiratory Nebulizer STAT RT 03/06/18 15:29 Completed Respiratory Therapy Assessment DAILY RT 03/06/18 15:40 Active Medication Summary Discontinued Medications Generic Name Dose Route Start Last Admin Trade Name Freq PRN Reason Stop Dose Admin Albuterol Sulfate 2.5 mg 03/06/18 15:29 03/06/18 15:39 Proventil 2.5 Mg/3 Ml Neb IH 03/06/18 15:30 2.5 mg STAT ONE Administration Albuterol Sulfate Confirm 03/06/18 15:35 Proventil 2.5 Mg/3 Ml Neb Administered 03/06/18 15:36 Dose 2.5 mg IH .STK-MED ONE Aspirin 324 mg 03/06/18 16:24 03/06/18 16:30 Baby Aspirin 81 Mg Chew PO 03/06/18 16:25 324 mg STAT ONE Administration Lab/Rad Data: Laboratory Result Diagrams 03/06/18 15:20 03/06/18 15:20 Laboratory Results 03/06/18 03/06/18 03/06/18 Range/Units 18:26 16:26 15:20 WBC (4.0-10.5) K/mm3 RBC (4.1-5.4) M/mm3 Hgb (12.0-16.0) gm/dl Hct (35-47) % MCV (78-100) fl MCH (26-32) pg MCHC (32-36) g/dl RDW (11.5-14.0) % Plt Count (150-450) K/mm3 MPV (6-9.5) fl Gran % (36.0-66.0) % Eos # (Auto) (0-0.5) Absolute Lymphs (auto) (1.0-4.6) Absolute Monos (auto) (0.0-1.3) Lymphocytes % (24.0-44.0) % Monocytes % (0.0-12.0) % Eosinophils % (0.00-5.0) % Basophils % (0.0-0.4) % Absolute Granulocytes (1.4-6.9) Basophils # (0-0.4) D-Dimer 272 (215-500) ng/mL Puncture Site pCO2 (35-45) mmHg pO2 (75-100) mmHg Base Excess (-2.0-2.0) O2 Saturation (94-100) g/dF ABG pH (7.35-7.45) ABG HCO3 (22-28) ABG O2 Sat (Measured) (95-100) % Stefan Test A-a Gradient a/A Ratio Hemoglobin Carboxyhemoglobin (0.0-6.9) % THgb Methemoglobin (1.4-1.5) % Potassium (3.5-5.1) Temperature C POC O2 Flow Rate % Sodium (137-145) mmol/L Chloride (98-107) mmol/L Carbon Dioxide (22-30) mmol/L Anion Gap (5-15) MEQ/L BUN (7-17) mg/dL Creatinine (0.52-1.04) mg/dL Estimated GFR ML/MIN Glucose (74-106) mg/dL Calcium (8.4-10.2) mg/dL Total Bilirubin (0.2-1.3) mg/dL AST (14-36) U/L ALT (0-35) U/L Alkaline Phosphatase (38-126) U/L Troponin I < 0.012 (0.000-0.034) ng/mL NT-Pro-B Natriuret Pep (0-900) pg/mL Serum Total Protein (6.3-8.2) g/dL Albumin (3.5-5.0) g/dL Amylase 62 (30-110) U/L Lipase 54 (23-300) U/L 03/06/18 03/06/18 03/06/18 Range/Units 15:20 15:20 15:15 WBC 8.2 (4.0-10.5) K/mm3 RBC 4.52 (4.1-5.4) M/mm3 Hgb 14.1 (12.0-16.0) gm/dl Hct 42.9 (35-47) % MCV 94.9 (78-100) fl MCH 31.2 (26-32) pg MCHC 32.9 (32-36) g/dl RDW 13.3 (11.5-14.0) % Plt Count 374 (150-450) K/mm3 MPV 8.9 (6-9.5) fl Gran % 63.7 (36.0-66.0) % Eos # (Auto) 0.13 (0-0.5) Absolute Lymphs (auto) 2.27 (1.0-4.6) Absolute Monos (auto) 0.55 (0.0-1.3) Lymphocytes % 27.8 (24.0-44.0) % Monocytes % 6.7 (0.0-12.0) % Eosinophils % 1.6 (0.00-5.0) % Basophils % 0.2 (0.0-0.4) % Absolute Granulocytes 5.21 (1.4-6.9) Basophils # 0.02 (0-0.4) D-Dimer (215-500) ng/mL Puncture Site pCO2 (35-45) mmHg pO2 (75-100) mmHg Base Excess (-2.0-2.0) O2 Saturation (94-100) g/dF ABG pH (7.35-7.45) ABG HCO3 (22-28) ABG O2 Sat (Measured) (95-100) % Stefan Test A-a Gradient a/A Ratio Hemoglobin Carboxyhemoglobin (0.0-6.9) % THgb Methemoglobin (1.4-1.5) % Potassium 3.8 (3.5-5.1) Temperature C POC O2 Flow Rate % Sodium 141 (137-145) mmol/L Chloride 107 (98-107) mmol/L Carbon Dioxide 27 (22-30) mmol/L Anion Gap 11.0 (5-15) MEQ/L BUN 4 L (7-17) mg/dL Creatinine 0.74 (0.52-1.04) mg/dL Estimated GFR > 60.0 ML/MIN Glucose 107 H (74-106) mg/dL Calcium 10.0 (8.4-10.2) mg/dL Total Bilirubin 0.50 (0.2-1.3) mg/dL AST 18 (14-36) U/L ALT 18 (0-35) U/L Alkaline Phosphatase 103 (38-126) U/L Troponin I < 0.012 (0.000-0.034) ng/mL NT-Pro-B Natriuret Pep 68.3 (0-900) pg/mL Serum Total Protein 7.9 (6.3-8.2) g/dL Albumin 4.6 (3.5-5.0) g/dL Amylase (30-110) U/L Lipase (23-300) U/L 03/06/18 Range/Units 15:12 WBC (4.0-10.5) K/mm3 RBC (4.1-5.4) M/mm3 Hgb (12.0-16.0) gm/dl Hct (35-47) % MCV (78-100) fl MCH (26-32) pg MCHC (32-36) g/dl RDW (11.5-14.0) % Plt Count (150-450) K/mm3 MPV (6-9.5) fl Gran % (36.0-66.0) % Eos # (Auto) (0-0.5) Absolute Lymphs (auto) (1.0-4.6) Absolute Monos (auto) (0.0-1.3) Lymphocytes % (24.0-44.0) % Monocytes % (0.0-12.0) % Eosinophils % (0.00-5.0) % Basophils % (0.0-0.4) % Absolute Granulocytes (1.4-6.9) Basophils # (0-0.4) D-Dimer (215-500) ng/mL Puncture Site LEFT RADIAL pCO2 32 L (35-45) mmHg pO2 83 (75-100) mmHg Base Excess 1.0 (-2.0-2.0) O2 Saturation 95.4 (94-100) g/dF ABG pH 7.48 H (7.35-7.45) ABG HCO3 23.8 (22-28) ABG O2 Sat (Measured) 98.7 (95-100) % Stefan Test YES A-a Gradient 27 a/A Ratio 0.75 Hemoglobin 14.2 Carboxyhemoglobin 2.0 (0.0-6.9) % THgb Methemoglobin 1.3 L (1.4-1.5) % Potassium 3.5 (3.5-5.1) Temperature 37.0 C POC O2 Flow Rate 21 % Sodium (137-145) mmol/L Chloride (98-107) mmol/L Carbon Dioxide (22-30) mmol/L Anion Gap (5-15) MEQ/L BUN (7-17) mg/dL Creatinine (0.52-1.04) mg/dL Estimated GFR ML/MIN Glucose (74-106) mg/dL Calcium (8.4-10.2) mg/dL Total Bilirubin (0.2-1.3) mg/dL AST (14-36) U/L ALT (0-35) U/L Alkaline Phosphatase (38-126) U/L Troponin I (0.000-0.034) ng/mL NT-Pro-B Natriuret Pep (0-900) pg/mL Serum Total Protein (6.3-8.2) g/dL Albumin (3.5-5.0) g/dL Amylase (30-110) U/L Lipase (23-300) U/L - Progress Progress: improved Air Movement: fair Progress Note: 03/06/18 16:27 This is a 52-year-old white female with history of seizures, arrhythmia, hypoglycemia She was seen here yesterday with complaint of shortness of breath cough symptoms since December. Patient had an essentially normal workup with normal CMP CBC d-dimer troponin and chest x-ray. Patient had clear lung she was given Rocephin and Zithromax IV and discharged with a prescription for doxycycline in the emergency room. She returns today she states she continues to have cough she states she is having pain essentially with coughing and her sternal region symptoms continuing since yesterday. Patient does exhibit some bizarre behavior when she arrives she flings her arms around the nurses are trying to stick an IV in for access. However patient allows ABGs to be performed and does allow laboratory draw of blood work. Patient has an EKG which is remarkable for normal sinus rhythm, 84 bpm normal axis no acute ST or T wave changes normal EKG patient has a chest x-ray which is a again normal heart and lungs with mild bony degenerative changes Patient has a normal ABGs is significant only for some hyperventilation she has normal CMP CBC she has a negative d-dimer and a negative troponin because of the patient's complaint of continuing shortness of breath I did give her albuterol treatment she does state that she feels a little better but now she states she continues to have some pain in the anterior sternal region. I have therefore gone ahead and ordered an amylase and lipase on this patient and have asked the nurses to give the patient aspirin 324 mg orally. Will await repeat troponin 3 hours after last draw. . 03/06/18 19:08 Patient's repeat troponin is within normal limits. Patient feeling much better. Will send patient home with prescription for albuterol inhaler. She is to continue not smoking. She is to fill her prescriptions for antibiotics prescribed to her yesterday from this emergency room. She is to follow-up with a local physician. - Departure Time of Disposition: 19:09 Departure Disposition: Home Clinical Impression: Bronchitis, Non-cardiac chest pain, Shortness of breath Condition: Fair Critical Care Time: No Referrals: DOCTOR,NO FAMILY [Primary Care Provider] - Additional Instructions: Return home. Plenty of fluids. Continue not to smoke. Albuterol 2 puffs every 4-6 hours as needed. Fill your prescription for antibiotics as prescribed yesterday. Follow-up with your family doctor (list). Return for acute distress or for severe symptoms.
[2018-03-06] MEDS ORDERED: PROVENTIL 2.5 MG/3 ML NEB IH ONE ×2 (15:29→15:35)
[2018-03-06 15:32] LABS: A-aADO2 27; ABG HEMOGLOBIN 14.2; ABG POTASSIUM 3.5 (3.5-5.1); ABG SITE LEFT RADIAL; ALLEN TEST OK? YES; ARTERIAL BLD GAS O2 SATURATION 98.7 % (95-100); ARTERIAL BLOOD GAS FIO2 21 %; ARTERIAL BLOOD GAS PCO2 32 mmHg (35-45); ARTERIAL BLOOD GAS PO2 83 mmHg (75-100); ARTERIAL BLOOD GAS pH 7.48 (7.35-7.45); HCO3- 23.8 (22-28); HGB O2 SAT 95.4 g/dF (94-100); Methhemoglobin 1.3 % (1.4-1.5); paO2 pAO1 0.75
[2018-03-06 15:38] LABS: BASOPHIL % 0.2 % (0.0-0.4); Basophil (Absolute #) 0.02 (0-0.4); Eosinophil % 1.6 % (0.00-5.0); Eosinophil (Absolute #) 0.13 (0-0.5); Granulocyte Absolute (ANC) 5.21 (1.4-6.9); Granulocytes % 63.7 % (36.0-66.0); Hematocrit 42.9 % (35-47); Hemoglobin 14.1 gm/dl (12.0-16.0); Lymphocyte (Absolute #) 2.27 (1.0-4.6); Lymphocytes % 27.8 % (24.0-44.0); Mean Cell Volume 94.9 fl (78-100); Mean Corpuscular Hemoglobin 31.2 pg (26-32); Mean Corpuscular Hgb Concent. 32.9 g/dl (32-36); Mean Platelet Volume 8.9 fl (6-9.5); Monocyte (Absolute #) 0.55 (0.0-1.3); Monocytes % 6.7 % (0.0-12.0); Platelet Count 374 K/mm3 (150-450); Red Blood Count 4.52 M/mm3 (4.1-5.4); Red Cell Distribution Width 13.3 % (11.5-14.0); White Blood Count 8.2 K/mm3 (4.0-10.5)
[2018-03-06 15:57] LABS: ALBUMIN 4.6 g/dL (3.5-5.0); ALKALINE PHOSPHATASE 103 U/L (38-126); BLOOD UREA NITROGEN 4 mg/dL (7-17); CHLORIDE 107 mmol/L (98-107); Carbon Dioxide 27 mmol/L (22-30); Creatinine 1 0.74 mg/dL (0.52-1.04); Glucose 107 mg/dL (74-106); NT PRO BNP 68.3 pg/mL (0-900); Potassium 3.8 mmol/L (3.5-5.1); SGOT/AST 18 U/L (14-36); SGPT/ALT 18 U/L (0-35); SODIUM 141 mmol/L (137-145); Total Protein 7.9 g/dL (6.3-8.2)
--- NOTE | 2018-03-06 16:17 | XRAY ---
Indication: Cough. Short of breath. Comparison: One day earlier. Portable chest again demonstrates normal heart and lungs with mild bony degenerative changes. No new/acute findings.
[2018-03-06] MEDS ORDERED: BABY ASPIRIN 81 MG CHEW PO ONE (16:24)
[2018-03-06 16:36] LABS: AMYLASE 62 U/L (30-110); LIPASE 54 U/L (23-300)
[2018-03-06 19:17] VITALS: BP 145/91; PULSE 72; O2SAT 98
== END 2018-03-06 19:22 | disposition home or self-care (01) ==
LOC: ED 14:54
DX: J40 Bronchitis, not specified as acute or chronic (principal); R07.89 Other chest pain; R06.02 Shortness of breath; G40.909 Epilepsy, unspecified, not intractable, without status epilepticus; Z72.0 Tobacco use
CPT/HCPCS: 36415; 36600; 71045; 80053; 82150; 82375; 82803; 83690; 83880; 84484; 85025; 85379; 93005; 93041; 94640; 99284; J7609; A9270-GY

== ENCOUNTER 2018-09-15 16:27 | Emergency (ER) | payer MEDICAID ==
[2018-09-15 16:40] VITALS: BP 131/95; PULSE 62; O2SAT 96
[2018-09-15] MEDS ORDERED: Zithromax 250 MG TABLET PO ONE (17:51)
[2018-09-15] MEDS ORDERED: Zithromax 250 MG TABLET ONE (17:56)
--- NOTE | 2018-09-15 17:58 | ERPHSYRPT ---
- History of Present Illness Time Seen by Provider: 09/15/18 17:47 Source: patient Exam Limitations: no limitations Patient Subjective Stated Complaint: pt here for a toothache to right lower jaw , she has apt monday with a dentist in [place], Triage Nursing Assessment: pt is alert, walked in , resp easy, skin w/d/p. pt has multi broken and decayed teeth, no swelling Physician History: 52-year-old white female arrives with complaint of toothache in the right mandibular region laterally symptoms for a week she states that she has an appointment with a dentist on Monday. She states that she has been taking Tylenol for pain she states she cannot take ibuprofen she also has a listed allergy to codeine morphine she states she cannot take hydrocodone. Past medical history includes seizures, hypoglycemia, bronchitis, arrhythmia Past surgical history includes D&C, tubal ligation Timing/Duration: week(s) (oone week) Severity: moderate (and in her and and in and in and and put in an) Modifying Factors: Improves With: acetaminophen Associated Symptoms: No nausea, No vomiting, No abdominal pain, No shortness of breath, No heartburn, No diaphoresis, No cough, No chills, No chest pain, No fever, No headaches, No loss of appetite, No malaise, No rash, No syncope, No seizure, No weakness Allergies/Adverse Reactions: codeine Allergy (Intermediate, Verified 09/15/18 16:40) Rash Penicillins Allergy (Intermediate, Verified 09/15/18 16:40) swelling, hives naproxen sodium [From Aleve] Allergy (Mild, Verified 09/15/18 16:40) I WAS GOING TO ibuprofen Allergy (Verified 09/15/18 16:40) clindamycin Adverse Reaction (Verified 09/15/18 16:41) morphine Adverse Reaction (Verified 09/15/18 16:40) increased hr, n/v Hx Tetanus, Diphtheria Vaccination/Date Given: No Hx Influenza Vaccination/Date Given: No Hx Pneumococcal Vaccination/Date Given: No Immunizations Up to Date: Yes - Review of Systems Constitutional: No Fever, No Chills Eyes: No Symptoms Ears, Nose, & Throat: Mouth Pain (tooth pain right mandibularpain laterally), No Ear Pain, No Ear Discharge, No Hearing Changes, No Tinnitus, No Nose Pain, No Nose Congestion, No Nose Discharge, No Epistaxis, No Mouth Swelling, No Loose Teeth, No Throat Pain, No Throat Swelling, No Hoarse, No Painful Swallowing, No Snoring, No Stridor Respiratory: No Symptoms Cardiac: No Chest Pain, No Edema, No Syncope Abdominal/Gastrointestinal: No Abdominal Pain, No Nausea, No Vomiting, No Diarrhea Genitourinary Symptoms: No Dysuria Musculoskeletal: No Back Pain, No Neck Pain Skin: No Rash Neurological: No Dizziness, No Focal Weakness, No Sensory Changes Psychological: No Symptoms Endocrine: No Symptoms All Other Systems: Reviewed and Negative - Past Medical History Pertinent Past Medical History: Yes Neurological History: Seizures Cardiac History: Arrhythmia Respiratory History: Bronchitis Endocrine Medical History: Hypoglycemia - Past Surgical History Past Surgical History: Yes Female Surgical History: Dilation & Curettage, Tubal Ligation, Other - Social History Smoking Status: Former smoker How long have you smoked: YRS Exposure to second hand smoke: No Drug Use: none Patient Lives Alone: No - Female History Hx Last Menstrual Period: none Hx Now: No - Nursing Vital Signs Nursing Vital Signs: Initial Vital Signs Temperature 97.0 F 09/15/18 16:33 Pulse Rate 62 09/15/18 16:33 Respiratory Rate 18 09/15/18 16:33 Blood Pressure 131/95 09/15/18 16:33 O2 Sat by Pulse Oximetry 96 09/15/18 16:33 Pain Scale Pain Intensity 5 - Physical Exam General Appearance: mild distress, alert Eye Exam: PERRL/EOMI, eyes nml inspection, other Ears, Nose, Throat Exam: TMs normal, pharynx normal, other (patient with carious teeth in the right mandibular region laterally, tenderness with palpation external to this) Neck Exam: normal inspection, non-tender, supple, full range of motion Respiratory Exam: normal breath sounds, lungs clear, No respiratory distress Cardiovascular Exam: regular rate/rhythm, normal heart sounds, normal peripheral pulses, capillary refill <2 sec Gastrointestinal/Abdomen Exam: soft, normal bowel sounds, No tenderness, No mass Back Exam: normal inspection, normal range of motion, No CVA tenderness, No vertebral tenderness Extremity Exam: normal inspection, normal range of motion, pelvis stable Neurologic Exam: alert, oriented x 3, cooperative, hard candy spinner II-XII nml as tested, normal mood/affect, nml cerebellar function, nml station & gait, sensation nml, No motor deficits Skin Exam: normal color, warm, dry, No rash SpO2 Interpretation: normal (96%) SpO2: 96 - Course Nursing assessment & vital signs reviewed: Yes Ordered Tests: Medication Summary Generic Name Dose Route Start Last Admin Trade Name Florencia PRN Reason Stop Dose Admin Lidocaine HCl 20 ml 09/15/18 18:00 Xylocaine Viscous 2% 20 Ml Cup PO 09/15/18 18:01 STAT ONE Discontinued Medications Generic Name Dose Route Start Last Admin Trade Name Florencia PRN Reason Stop Dose Admin Azithromycin 500 mg 09/15/18 17:51 Zithromax 250 Mg Tablet PO 09/15/18 17:52 STAT ONE Azithromycin Confirm 09/15/18 17:56 Zithromax 250 Mg Tablet Administered 09/15/18 17:57 Dose 500 mg .ROUTE .STK-MED ONE - Progress Progress: improved Progress Note: 09/15/18 17:55 This is a 52-year-old white female with history of seizures, hypoglycemia, bronchitis, arrhythmia. She arrives with complaint of dental pain for one week patient has carious teeth the right mandibular region and tenderness external to this. I do not see obvious abscess. Patient with multiple allergies which include codeine, penicillin Naprosyn, ibuprofen, clindamycin and morphine. She states she cannot take hydrocodone as well. Will go ahead and write for viscous lidocaine patient tube placed on a cotton ball and place adjacent to her carious tooth. Several times a day. She is to place cold packs to the area 24-48 hours externally. Will write for Zithromax. She is to followup with her dentist - Departure Departure Disposition: Home Clinical Impression: Pain, dental, Dental caries Condition: Fair Critical Care Time: No Referrals: SHELLEY MORTENSEN [Primary Care Provider] - Additional Instructions: Return home. Viscous lidocaine on cotton ball placed lateral to right tooth every 3 hours as needed. Cold packs externally to area 24-48 hours. Zithromax as prescribed. Followup with your dentist. Avoid excessively hot or cold foods. Return for acute distress or for severe symptoms. Prescriptions: Azithromycin 250 mg [Zithromax 250 MG TABLET] 250 mg PO DAILY #4 tablet
[2018-09-15] MEDS ORDERED: XYLOCAINE VISCOUS 2% 20 ML CUP PO ONE (18:00)
[2018-09-15] MEDS ORDERED: XYLOCAINE HCl Viscous ONE (18:15)
== END 2018-09-15 18:37 | disposition home or self-care (01) ==
LOC: ED 16:27
DX: K02.9 Dental caries, unspecified (principal)
CPT/HCPCS: 99283; A9270-GY

== ENCOUNTER 2019-01-04 10:33 | Emergency (ER) | payer MEDICAID ==
[2019-01-04] MEDS ORDERED: Zithromax 250 MG TABLET PO ONE (10:51)
--- NOTE | 2019-01-04 10:51 | ERPHSYRPT ---
- History of Present Illness Time Seen by Provider: 01/04/19 10:44 Source: patient Exam Limitations: no limitations Physician History: sore throat, cough, however is literally symptoms for last . Patient's daughter had a pneumonia social to make sure that she doesn't have a pneumonia.patient quit smoking 9 months ago. Timing/Duration: day(s) (3) Cough Quality/Degree: moderate, dry cough Possible Cause: occasional episodes Modifying Factors: Improves With: nothing Associated Symptoms: cough, sore throat International travel in last 2 weeks: No Allergies/Adverse Reactions: codeine Allergy (Intermediate, Verified 09/15/18 16:40) Rash Penicillins Allergy (Intermediate, Verified 09/15/18 16:40) swelling, hives naproxen sodium [From Aleve] Allergy (Mild, Verified 09/15/18 16:40) I WAS GOING TO ibuprofen Allergy (Verified 09/15/18 16:40) clindamycin Adverse Reaction (Verified 09/15/18 16:41) morphine Adverse Reaction (Verified 09/15/18 16:40) increased hr, n/v Hx Tetanus, Diphtheria Vaccination/Date Given: No Hx Influenza Vaccination/Date Given: No Hx Pneumococcal Vaccination/Date Given: No - Review of Systems Constitutional: Chills, Fatigue, No Fever Eyes: No Symptoms Ears, Nose, & Throat: No Symptoms, Throat Pain Respiratory: Cough, No Dyspnea Cardiac: No Chest Pain, No Edema, No Syncope Abdominal/Gastrointestinal: No Abdominal Pain, No Nausea, No Vomiting, No Diarrhea Genitourinary Symptoms: No Dysuria Musculoskeletal: No Back Pain, No Neck Pain Skin: No Rash Neurological: No Dizziness, No Focal Weakness, No Sensory Changes Psychological: No Symptoms Endocrine: No Symptoms All Other Systems: Reviewed and Negative - Past Medical History Pertinent Past Medical History: Yes Neurological History: Seizures ENT History: Glaucoma Cardiac History: Arrhythmia Respiratory History: Bronchitis Endocrine Medical History: Hypoglycemia Musculoskeletal History: No Pertinent History GI Medical History: Esophageal Disorder History: No Pertinent History Psycho-Social History: Anxiety Female Reproductive Disorders: No Pertinent History - Past Surgical History Past Surgical History: Yes Neuro Surgical History: No Pertinent History Cardiac: Cardiac Stent Respiratory: No Pertinent History Gastrointestinal: No Pertinent History Genitourinary: Kidney Surgery Musculoskeletal: No Pertinent History, Joint Replacement Female Surgical History: Dilation & Curettage, Tubal Ligation, Other - Social History Smoking Status: Former smoker How long have you smoked: YRS Exposure to second hand smoke: No Drug Use: none Patient Lives Alone: No - Nursing Vital Signs Nursing Vital Signs: Initial Vital Signs Temperature 97.6 F 01/04/19 11:04 Pulse Rate 82 01/04/19 11:04 Respiratory Rate 18 01/04/19 11:04 Blood Pressure 159/88 01/04/19 11:04 O2 Sat by Pulse Oximetry 97 01/04/19 11:04 Pain Scale Pain Intensity 0 - Physical Exam General Appearance: no apparent distress, alert Eye Exam: PERRL/EOMI, eyes nml inspection Ears, Nose, Throat Exam: normal ENT inspection, TMs normal, pharynx normal, moist mucous membranes, pharyngeal erythema Neck Exam: normal inspection, non-tender, supple, full range of motion Respiratory Exam: normal breath sounds, lungs clear, airway intact, No chest tenderness, No respiratory distress, No diminished breath sounds, No accessory muscle use, No prolonged expirations, No crackles/rales, No rhonchi, No wheezing Cardiovascular Exam: regular rate/rhythm, normal heart sounds Gastrointestinal/Abdomen Exam: soft, No tenderness Back Exam: normal inspection, No CVA tenderness, No vertebral tenderness Extremity Exam: normal inspection, normal range of motion Neurologic Exam: alert, oriented x 3, cooperative, normal mood/affect, sensation nml, No motor deficits Skin Exam: normal color, warm, dry, No rash Lymphatic Exam: No adenopathy - Course Nursing assessment & vital signs reviewed: Yes - Radiology Exams Chest X-ray Interpretation: Discussed w/ radiologist, No Infiltrates Ordered Tests: Active Orders 24 hr Category Date Time Status CHEST 2 VIEWS (PA AND LAT) Stat Exams 01/04/19 11:11 Completed Medication Summary Generic Name Dose Route Start Last Admin Trade Name Freq PRN Reason Stop Dose Admin Prednisone 20 mg 01/05/19 10:52 01/04/19 11:21 Deltasone 20 Mg PO 01/05/19 10:53 20 mg STAT ONE Administration Discontinued Medications Generic Name Dose Route Start Last Admin Trade Name Freq PRN Reason Stop Dose Admin Azithromycin 500 mg 01/04/19 10:51 01/04/19 11:22 Zithromax 250 Mg Tablet PO 01/04/19 10:52 500 mg STAT ONE Administration Azithromycin Confirm 01/04/19 11:05 Zithromax 250 Mg Tablet Administered 01/04/19 11:06 Dose 500 mg .ROUTE .STK-MED ONE Prednisone Confirm 01/04/19 11:05 Deltasone 20 Mg Administered 01/04/19 11:06 Dose 20 mg .ROUTE .STK-MED ONE Lab/Rad Data: Laboratory Results 01/04/19 Range/Units 11:04 Group A Strep Antibody NEGATIVE (NEGATIVE) - Progress Progress: unchanged Air Movement: good Progress Note: 01/04/19 11:36 patient afebrile, nontoxic. No respiratory distress. No shortness of breath. Strep negative. The chest x-ray no infiltrate. We'll discharge patient home with Z-Christiano. Advised patient to follow up with PCP and return to the ER for any emergency. Blood Culture(s) Obtained: No Antibiotics given: Yes Counseled pt/family regarding: diagnosis, need for follow-up - Departure Departure Disposition: Home Clinical Impression: Bronchitis Pharyngitis Qualifiers: Pharyngitis/tonsillitis etiology: unspecified etiology Qualified Code(s): J02.9 - Acute pharyngitis, unspecified Condition: Good Critical Care Time: No Referrals: SHELLEY MORTENSEN [Primary Care Provider] - 01/07/19 Prescriptions: Azithromycin 250 mg [Zithromax 250 MG TABLET] 250 mg PO ZPACK #6 tablet
[2019-01-04] MEDS ORDERED: Zithromax 250 MG TABLET ONE (11:05)
[2019-01-04] MEDS ORDERED: DELTASONE 20 MG ONE (11:05)
--- NOTE | 2019-01-04 11:22 | XRAY ---
Indication: Cough and sore throat 3 weeks. Comparison: March 06, 2018. PA/chest again demonstrates normal heart and lungs. Bony thorax intact with mild degenerative changes. No new/acute findings.
[2019-01-04 11:56] VITALS: BP 142/93; PULSE 75; O2SAT 99
[2019-01-05] MEDS ORDERED: DELTASONE 20 MG PO ONE (10:52)
== END 2019-01-04 11:56 | disposition home or self-care (01) ==
LOC: ED 10:33
DX: J40 Bronchitis, not specified as acute or chronic (principal); J02.9 Acute pharyngitis, unspecified
CPT/HCPCS: 71046; 87651; 99283; A9270-GY

== ENCOUNTER 2019-04-04 16:00 | Emergency (ER) | payer SELFPAY ==
--- NOTE | 2019-04-04 16:44 | ERPHSYRPT ---
- History of Present Illness Time Seen by Provider: 04/04/19 16:19 Source: patient Exam Limitations: no limitations Patient Subjective Stated Complaint: states has had upper respiratory symptoms since last monday. cough, nasal and chest congestion. denies fever. Triage Nursing Assessment: ambulated to room per self. skin w/d, color normal. resp nonlabored. occasional dry cough noted. Physician History: 53 years old female presented in the ER with chief complaint of 5-day history of nasal congestion, sore throat and now started to have a dry cough which is more with lying down. No fever or chills reported. Grandson had similar symptoms. Denies any chest pain palpitations or shortness of breath. Timing/Duration: day(s) (5), gradual onset, worse Cough Quality/Degree: dry cough Possible Cause: illness exposure Modifying Factors: Improves With: lying down Associated Symptoms: cough, nasal congestion, nasal drainage, sinus infection, sore throat Allergies/Adverse Reactions: codeine Allergy (Intermediate, Verified 04/04/19 16:32) Rash Penicillins Allergy (Intermediate, Verified 04/04/19 16:32) swelling, hives naproxen sodium [From Aleve] Allergy (Mild, Verified 04/04/19 16:32) I WAS GOING TO ibuprofen Allergy (Verified 04/04/19 16:32) clindamycin Adverse Reaction (Verified 04/04/19 16:32) morphine Adverse Reaction (Verified 04/04/19 16:32) increased hr, n/v Hx Tetanus, Diphtheria Vaccination/Date Given: Yes Hx Influenza Vaccination/Date Given: No Hx Pneumococcal Vaccination/Date Given: No - Review of Systems Constitutional: No Symptoms Eyes: No Symptoms Ears, Nose, & Throat: Nose Congestion, Nose Discharge, Sinus Drainage Respiratory: Cough, No Wheezing Cardiac: No Symptoms Abdominal/Gastrointestinal: No Symptoms Genitourinary Symptoms: No Symptoms Musculoskeletal: No Symptoms Skin: No Symptoms Neurological: No Symptoms Psychological: No Symptoms Endocrine: No Symptoms Hematologic/Lymphatic: No Symptoms - Past Medical History Pertinent Past Medical History: Yes Neurological History: Seizures ENT History: Glaucoma Cardiac History: Arrhythmia Respiratory History: Bronchitis Endocrine Medical History: Hypoglycemia Musculoskeletal History: No Pertinent History GI Medical History: Esophageal Disorder History: No Pertinent History Psycho-Social History: Anxiety Female Reproductive Disorders: No Pertinent History - Past Surgical History Past Surgical History: Yes Neuro Surgical History: No Pertinent History Cardiac: Cardiac Stent Respiratory: No Pertinent History Gastrointestinal: No Pertinent History Genitourinary: Kidney Surgery Musculoskeletal: No Pertinent History, Joint Replacement Female Surgical History: Dilation & Curettage, Tubal Ligation, Other - Social History Smoking Status: Former smoker How long have you smoked: YRS Exposure to second hand smoke: No Drug Use: none Patient Lives Alone: No - Female History Hx Now: No - Nursing Vital Signs Nursing Vital Signs: Initial Vital Signs Temperature 97.4 F 04/04/19 16:18 Pulse Rate 79 04/04/19 16:18 Respiratory Rate 18 04/04/19 16:18 Blood Pressure 146/91 04/04/19 16:18 O2 Sat by Pulse Oximetry 100 04/04/19 16:18 Pain Scale Pain Intensity 3 - Physical Exam General Appearance: no apparent distress Eye Exam: PERRL/EOMI, eyes nml inspection Ears, Nose, Throat Exam: TMs normal, moist mucous membranes, pharyngeal erythema , other (maxillary tenderness bilateral), No tonsillar exudate Neck Exam: normal inspection, non-tender, supple, full range of motion Respiratory Exam: normal breath sounds, lungs clear Cardiovascular Exam: regular rate/rhythm, normal heart sounds Gastrointestinal/Abdomen Exam: soft, normal bowel sounds Back Exam: normal inspection Extremity Exam: normal inspection, normal range of motion Neurologic Exam: alert, oriented x 3, cooperative Skin Exam: normal color SpO2 Interpretation: normal SpO2: 100 O2 Delivery: Room Air - Course Nursing assessment & vital signs reviewed: Yes - Progress Progress: unchanged Air Movement: good Progress Note: 04/04/19 16:42 I believe patient has viral URI with sinusitis. Recommended Flonase and antihistamine along with getk-hvb-xlxphst cough medications. Patient not need any antibiotics. Lungs bilateral clear to auscultation, not in any distress. Do not think she needs any imaging or other work-up and is stable for discharge. Discussed signs symptoms of worsening needing return to ER but she seemed understanding otherwise follow-up with primary care. Blood Culture(s) Obtained: No Antibiotics given: No Counseled pt/family regarding: diagnosis, need for follow-up - Departure Departure Disposition: Home Clinical Impression: Sinusitis Qualifiers: Sinusitis location: maxillary Chronicity: acute Recurrence: not specified as recurrent Qualified Code(s): J01.00 - Acute maxillary sinusitis, unspecified Condition: Stable Critical Care Time: No Referrals: SHELLEY MORTENSEN [Primary Care Provider] - Follow Up with PCP/3 days Instructions: Sinusitis, Adult (DC) Additional Instructions: Follow-up with primary care for reevaluation. Return to ER for any worsening. Prescriptions: Fluticasone Propionate [Flonase NASAL] 16 gm NS BID #1 bottle
[2019-04-04 17:00] VITALS: BP 123/85; PULSE 78; O2SAT 98
== END 2019-04-04 17:01 | disposition home or self-care (01) ==
LOC: ED 16:00
DX: J01.00 Acute maxillary sinusitis, unspecified (principal)
CPT/HCPCS: 99283

== ENCOUNTER 2020-08-12 16:47 | Emergency (ER) | payer MEDICAID ==
[2020-08-12 17:50] VITALS: BP 150/86; PULSE 92; O2SAT 100
--- NOTE | 2020-08-12 18:27 | ERPHSYRPT ---
- History of Present Illness Time Seen by Provider: 08/12/20 17:55 Source: patient Exam Limitations: no limitations Patient Subjective Stated Complaint: Pt c/o of nasal congestion, right ear pain, right side of throat, and right sided headache for the past 5 days Triage Nursing Assessment: Pt brought self to the ER, hypertensive, rates head pain as 2/10, nasal drainage is clear, head feels full, pulses normal, doesn't appear to be in any distress Physician History: Patient is a 54-year-old female presents to our ED with complaints of 4-day history of nasal congestion/rhinorrhea, right ear pressure, right-sided sore throat, frontal headache. Patient has not taken any medications at all for her symptoms. No associated chest pain or shortness of breath. No nausea vomiting or diaphoresis. No neck pain or photophobia. Patient has no meningeal signs. Patient able to swallow. No trismus. No drooling. Symptoms are constant. Symptoms are moderate in intensity. No specific worsening improving factors. Patient believes she may have allergies. Patient voices no other complaints or concerns at this time. Allergies/Adverse Reactions: codeine Allergy (Intermediate, Verified 04/04/19 16:32) Rash Penicillins Allergy (Intermediate, Verified 04/04/19 16:32) swelling, hives naproxen sodium [From Aleve] Allergy (Mild, Verified 04/04/19 16:32) I WAS GOING TO ibuprofen Allergy (Verified 04/04/19 16:32) clindamycin Adverse Reaction (Verified 04/04/19 16:32) morphine Adverse Reaction (Verified 04/04/19 16:32) increased hr, n/v tramadol Adverse Reaction (Verified 08/12/20 17:55) Hx Tetanus, Diphtheria Vaccination/Date Given: Yes Hx Influenza Vaccination/Date Given: No Hx Pneumococcal Vaccination/Date Given: No Travel Risk - International Travel Have you traveled outside of the country in past 3 weeks: No - Coronavirus Screening Are you exhibiting any of the following symptoms?: No Symptoms: Shortness of Breath - Vaccine Status Have you recieved a Covid-19 vaccination: No - Review of Systems Constitutional: No Symptoms, No Fever, No Chills Eyes: No Symptoms Ears, Nose, & Throat: No Symptoms Respiratory: No Symptoms, No Cough, No Dyspnea Cardiac: No Symptoms, No Chest Pain, No Edema, No Syncope Abdominal/Gastrointestinal: No Symptoms, No Abdominal Pain, No Nausea, No Vomiting, No Diarrhea Genitourinary Symptoms: No Symptoms, No Dysuria Musculoskeletal: No Symptoms, No Back Pain, No Neck Pain Skin: No Symptoms, No Rash Neurological: No Symptoms, No Dizziness, No Focal Weakness, No Sensory Changes Psychological: No Symptoms Endocrine: No Symptoms Hematologic/Lymphatic: No Symptoms Immunological/Allergic: No Symptoms All Other Systems: Reviewed and Negative - Past Medical History Pertinent Past Medical History: Yes Neurological History: Seizures ENT History: Glaucoma Cardiac History: Arrhythmia Respiratory History: Bronchitis Endocrine Medical History: Hypoglycemia Musculoskeletal History: No Pertinent History GI Medical History: Esophageal Disorder History: No Pertinent History Psycho-Social History: Anxiety Female Reproductive Disorders: No Pertinent History - Past Surgical History Past Surgical History: Yes Neuro Surgical History: No Pertinent History Cardiac: Cardiac Stent Respiratory: No Pertinent History Gastrointestinal: No Pertinent History Genitourinary: Kidney Surgery Musculoskeletal: No Pertinent History, Joint Replacement Female Surgical History: Dilation & Curettage, Tubal Ligation, Other - Social History Smoking Status: Former smoker How long have you smoked: YRS Exposure to second hand smoke: No Drug Use: none Patient Lives Alone: No - Female History Hx Now: No - Nursing Vital Signs Nursing Vital Signs: Initial Vital Signs Temperature 98.4 F 08/12/20 17:47 Pulse Rate 92 H 08/12/20 17:47 Respiratory Rate 18 08/12/20 17:47 Blood Pressure 150/86 08/12/20 17:47 O2 Sat by Pulse Oximetry 100 08/12/20 17:47 Pain Scale Pain Intensity 2 - Physical Exam General Appearance: no apparent distress, alert Eye Exam: PERRL/EOMI, eyes nml inspection Ears, Nose, Throat Exam: normal ENT inspection, TMs normal, pharynx normal, moist mucous membranes, other (No fever, no cervical lymphadenopathy, no tonsillar exudate. There was otalgia during otoscopy. However no otitis externa or otitis media observed.), No tonsillar exudate Neck Exam: normal inspection, non-tender, supple, full range of motion Respiratory Exam: normal breath sounds, lungs clear, airway intact, No respiratory distress Cardiovascular Exam: regular rate/rhythm, normal heart sounds, normal peripheral pulses Gastrointestinal/Abdomen Exam: soft, normal bowel sounds, No tenderness, No mass Back Exam: normal inspection, normal range of motion, No CVA tenderness, No vertebral tenderness Extremity Exam: normal inspection, normal range of motion, pelvis stable Neurologic Exam: alert, oriented x 3, cooperative, normal mood/affect, sensation nml, No motor deficits Skin Exam: normal color, warm, dry, No rash Lymphatic Exam: No adenopathy SpO2 Interpretation: normal SpO2: 100 O2 Delivery: Room Air - Progress Progress: improved Progress Note: Patient is Centor criteria negative. No indication for antibiotics. Patient symptoms are likely viral. Patient declined steroids. She states she wants to talk to Dr. Oliva first. Patient states that she will go home and try [id number] Robitussin. Patient says she is ready for discharge. Patient requested that I forward steroid prescription to her pharmacy. However she will talk to Dr. Oliva before she picks up her prescription. 08/12/20 18:35 Counseled pt/family regarding: diagnosis, need for follow-up - Departure Departure Disposition: Home Clinical Impression: URI (upper respiratory infection), Viral sinusitis Condition: Stable Critical Care Time: No Referrals: SHELLEY OLIVA [Primary Care Provider] - Additional Instructions: Discharge/Care Plan ELMA SALAZAR was seen on 08/12/20 in the Emergency Room. The patient was counseled regarding Diagnosis,Lab results, Imaging studies, need for follow up and when to return to the Emergency Room. Prescriptions given: Discharge Note I have spoken with the patient and/or caregivers. I have explained the patient's condition, diagnosis and treatment plan based on the information available to me at this time. I have answered the patient's and/or caregiver's questions and addressed any concerns. The patient and/or caregivers have as good understanding of the patient's diagnosis, condition and treatment plan as can be expected at this point. The vital signs have been stable. The patient's condition is stable and appropriate for discharge from the emergency department. The patient will pursue further outpatient evaluation with the primary care physician or other designated or consulting physician as outlined in the discharge instructions. The patient and/or caregivers are agreeable to this plan of care and follow-up instructions have been explained in detail. The patient and/or caregivers have received these instruction. The patient/and or caregivers are aware that any significant change in condition or worsening of symptoms should prompt an immediate return to this or the closest emergency department or call 911. Prescriptions: Prednisone 10 mg [Deltasone 10 mg] 20 mg PO DAILY 3 Days #6 tablet
== END 2020-08-12 18:54 | disposition home or self-care (01) ==
LOC: ED 16:47
DX: N39.0 Urinary tract infection, site not specified (principal); J32.8 Other chronic sinusitis; B97.89 Other viral agents as the cause of diseases classified elsewhere
CPT/HCPCS: 99283

== ENCOUNTER 2020-12-12 16:27 | Emergency (ER) | payer MEDICAID, OTHER ==
--- NOTE | 2020-12-12 17:33 | ERPHSYRPT ---
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 She complains of severe pain between the second and third left toes. Increased pain with weightbearing. Method of Injury: direct blow, twisted Occurred: just prior to arrival Quality: constant, throbbing Severity of Pain-Max: severe Severity of Pain-Current: severe Lower Extremities Pain: 2nd toe: right, 3rd toe: right Modifying Factors: Improves With: movement Associated Symptoms: popping sensation Allergies/Adverse Reactions: codeine Allergy (Intermediate, Verified 12/12/20 16:41) Rash Penicillins Allergy (Intermediate, Verified 12/12/20 16:41) swelling, hives naproxen sodium [From Aleve] Allergy (Mild, Verified 12/12/20 16:41) I WAS GOING TO ibuprofen Allergy (Verified 12/12/20 16:41) clindamycin Adverse Reaction (Verified 12/12/20 16:41) morphine Adverse Reaction (Verified 12/12/20 16:41) increased hr, n/v tramadol Adverse Reaction (Verified 12/12/20 16:41) Hx Tetanus, Diphtheria Vaccination/Date Given: Yes Hx Influenza Vaccination/Date Given: No Hx Pneumococcal Vaccination/Date Given: No Travel Risk - International Travel Have you traveled outside of the country in past 3 weeks: No - Coronavirus Screening Are you exhibiting any of the following symptoms?: No Close contact with a COVID-19 positive Pt in past 14-21 Days: No - Vaccine Status Have you recieved a Covid-19 vaccination: Yes 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 - Vaccination Dates Date of 2cond Vaccination (if applicable): 10/2020 - Review of Systems Constitutional: No Fever, No Chills Eyes: No Symptoms Ears, Nose, & Throat: No Symptoms Respiratory: No Cough, No Dyspnea Cardiac: No Chest Pain, No Edema, No Syncope Abdominal/Gastrointestinal: No Abdominal Pain, No Nausea, No Vomiting, No Diarrhea Genitourinary Symptoms: No Dysuria Musculoskeletal: Joint Pain, No Back Pain, No Neck Pain Skin: No Rash Neurological: No Dizziness, No Focal Weakness, No Sensory Changes Psychological: No Symptoms Endocrine: No Symptoms All Other Systems: Reviewed and Negative - Past Medical History Pertinent Past Medical History: Yes Neurological History: Seizures ENT History: Glaucoma Cardiac History: Arrhythmia Respiratory History: Bronchitis Endocrine Medical History: Hypoglycemia Musculoskeletal History: No Pertinent History GI Medical History: Esophageal Disorder History: No Pertinent History Psycho-Social History: Anxiety Female Reproductive Disorders: No Pertinent History - Past Surgical History Past Surgical History: Yes Neuro Surgical History: No Pertinent History Cardiac: Cardiac Stent Respiratory: No Pertinent History Gastrointestinal: No Pertinent History Genitourinary: Kidney Surgery Musculoskeletal: No Pertinent History, Joint Replacement Female Surgical History: Dilation & Curettage, Tubal Ligation, Other - Social History Smoking Status: Former smoker How long have you smoked: YRS Exposure to second hand smoke: No Drug Use: none Patient Lives Alone: Yes - Female History Hx Now: No - Nursing Vital Signs Nursing Vital Signs: Initial Vital Signs Temperature 97.2 F 12/12/20 16:31 Pulse Rate 82 12/12/20 16:31 Blood Pressure 159/102 12/12/20 16:31 O2 Sat by Pulse Oximetry 99 12/12/20 16:31 Pain Scale Pain Intensity 6 - Physical Exam General Appearance: moderate distress Eyes, Ears, Nose, Throat Exam: normal ENT inspection Neck Exam: normal inspection, non-tender, supple Back Exam: normal inspection, normal range of motion Hips Exam: bilateral: non-tender, normal inspection, normal range of motion, no evidence of injury Legs Exam: bilateral leg: non-tender, normal inspection, normal range of motion, no evidence of injury Knees Exam: bilateral knee: non-tender, normal inspection, normal range of motion, no evidence of injury Ankle Exam: bilateral ankle: non-tender, normal inspection, normal range of motion, no evidence of injury Foot Exam: right foot: bone tenderness, limited range of motion, pain, soft tissue tenderness, swelling Neuro/Tendon Exam: normal sensation, normal motor functions, normal tendon funct ions Mental Status Exam: alert, oriented x 3, cooperative Skin Exam: normal color, warm, dry SpO2 Interpretation: normal SpO2: 99 O2 Delivery: Room Air - Radiology Exams Left Foot X-ray Interpretation: Interpreted by me, Negative (No fracture or dislocation) Ordered Tests: Active Orders 24 hr Category Date Time Status FOOT (MINIMUM 3 VIEWS) Stat Exams 12/12/20 Ordered - Progress Progress: unchanged - Departure Departure Disposition: Home Clinical Impression: Sprain of foot, left Condition: Stable Critical Care Time: No Referrals: SHELLEY MORTENSEN [Primary Care Provider] - Follow up/PCP as directed Instructions: Foot Sprain (DC) Forms: Work/School Release Form Prescriptions: Tramadol HCl 50 mg [Ultram 50 mg] 50 mg PO Q6H 3 Days #12 tablet
--- NOTE | 2020-12-12 20:47 | XRAY ---
Indication: Pain following injury. Comparison: September 30, 2008. 3 nonweightbearing views left foot demonstrates new small plantar heel spur and stable incidental small navicular accessory ossicle. No other bony, articular, or soft tissue abnormalities.
== END 2020-12-12 17:51 | disposition home or self-care (01) ==
LOC: ED 16:27
DX: S93.602A Unspecified sprain of left foot, initial encounter (principal); Y93.F9 Activity, other caregiving; Y92.122 Bedroom in nursing home as the place of occurrence of the external cause; Y99.0 Civilian activity done for income or pay; W23.1XXA Caught, crushed, jammed, or pinched between stationary objects, initial encounter
CPT/HCPCS: 73630; 99284

== ENCOUNTER 2020-12-15 11:28 | Emergency (ER) | payer SELFPAY ==
--- NOTE | 2020-12-15 11:33 | ERPHSYRPT ---
- History of Present Illness Time Seen by Provider: 12/15/20 11:32 Source: patient Exam Limitations: no limitations Physician History: This is a 55-year-old white female patient of Dr. Oliva who states that for the last 2 weeks she has had a dry cough and sore throat. This morning, she woke up and her symptoms were worse. Patient was recently placed on Keflex for dental infection. 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 The most recent COVID-19 test result was negative. This was taken of last week. Patient denies chest pain. She denies shortness of breath. Patient is allergic to codeine and cannot take hydrocodone as well. Patient has no abdominal pain. She said no nausea vomiting or diarrhea. She has not had a fever. Patient does not smoke. Patient does have a history of esophageal disorder. Severity of Dyspnea-Max: none Severity of Dyspnea-Current: none Possible Cause: no prior episodes Associated Symptoms: denies symptoms, cough Allergies/Adverse Reactions: codeine Allergy (Intermediate, Verified 12/15/20 12:02) Rash Penicillins Allergy (Intermediate, Verified 12/15/20 12:02) swelling, hives naproxen sodium [From Aleve] Allergy (Mild, Verified 12/15/20 12:02) I WAS GOING TO ibuprofen Allergy (Verified 12/15/20 12:02) clindamycin Adverse Reaction (Verified 12/15/20 12:02) morphine Adverse Reaction (Verified 12/15/20 12:02) increased hr, n/v tramadol Adverse Reaction (Verified 12/15/20 12:02) Home Medications: Cephalexin Mh 500 mg [Keflex 500 mg] 1 ea TID 12/15/20 [History] Hx Tetanus, Diphtheria Vaccination/Date Given: Yes Hx Influenza Vaccination/Date Given: No Hx Pneumococcal Vaccination/Date Given: No Travel Risk - International Travel Have you traveled outside of the country in past 3 weeks: No - Coronavirus Screening Are you exhibiting any of the following symptoms?: No Close contact with a COVID-19 positive Pt in past 14-21 Days: No - Vaccine Status Have you recieved a Covid-19 vaccination: No [place]: [employer] - Vaccination Dates Date of 2cond Vaccination (if applicable): 10/2020 - Review of Systems Constitutional: No Symptoms Eyes: No Symptoms Ears, Nose, & Throat: Throat Pain Respiratory: Cough, No Dyspnea, No Stridor, No Wheezing Cardiac: No Symptoms Abdominal/Gastrointestinal: No Symptoms Genitourinary Symptoms: No Symptoms Musculoskeletal: No Symptoms Skin: No Symptoms Neurological: No Symptoms Psychological: No Symptoms Endocrine: No Symptoms Hematologic/Lymphatic: No Symptoms Immunological/Allergic: No Symptoms All Other Systems: Reviewed and Negative - Past Medical History Pertinent Past Medical History: Yes Neurological History: Seizures ENT History: Glaucoma Cardiac History: Arrhythmia Respiratory History: Bronchitis Endocrine Medical History: Hypoglycemia Musculoskeletal History: No Pertinent History GI Medical History: Esophageal Disorder History: No Pertinent History Psycho-Social History: Anxiety Female Reproductive Disorders: No Pertinent History - Past Surgical History Past Surgical History: Yes Neuro Surgical History: No Pertinent History Cardiac: Cardiac Stent Respiratory: No Pertinent History Gastrointestinal: No Pertinent History Genitourinary: Kidney Surgery Musculoskeletal: No Pertinent History, Joint Replacement Female Surgical History: Dilation & Curettage, Tubal Ligation, Other - Social History Smoking Status: Former smoker How long have you smoked: YRS Exposure to second hand smoke: No Drug Use: none Patient Lives Alone: No - Nursing Vital Signs Nursing Vital Signs: Initial Vital Signs Temperature 98.4 F 12/15/20 11:54 Pulse Rate 80 12/15/20 11:54 Respiratory Rate 18 12/15/20 11:54 Blood Pressure 139/91 12/15/20 11:54 O2 Sat by Pulse Oximetry 99 12/15/20 11:54 Pain Scale Pain Intensity 0 - Physical Exam General Appearance: no apparent distress Eye Exam: PERRL/EOMI, eyes nml inspection Ears, Nose, Throat Exam: hearing grossly normal, normal ENT inspection, normal pharynx Neck Exam: normal inspection, non-tender, supple, full range of motion Respiratory Exam: normal breath sounds, lungs clear, airway intact, No chest tenderness, No respiratory distress Cardiovascular/Chest Exam: normal heart sounds, regular rate/rhythm Abdominal/Gastrointestinal Exam: soft, normal bowel sounds, No tenderness Rectal Exam: not done Extremity Exam: non-tender, normal range of motion, normal inspection Neurologic Exam: alert, oriented x 3, cooperative, 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 tested, normal mood/affect, nml cerebellar function, nml station & gait, sensation nml Skin Exam: normal color, warm, dry Lymphatic Exam: No adenopathy SpO2 Interpretation: normal - Course Nursing assessment & vital signs reviewed: Yes Ordered Tests: Active Orders 24 hr Category Date Time Status CHEST 1 VIEW (PORTABLE) Stat Exams 12/15/20 12:06 Completed INFLUENZA A+B TONI Stat Lab 12/15/20 12:06 Completed Lab/Rad Data: Laboratory Results 12/15/20 12/15/20 Range/Units 12:06 12:06 Influenza Type A Ag NEGATIVE (NEGATIVE) Influenza Type B Ag NEGATIVE (NEGATIVE) Group A Strep Antibody NOT DETECTED (NEGATIVE) - Progress Progress: re-examined, unchanged Air Movement: good Progress Note: 12/15/20 12:43 No acute cardiopulmonary processes on today's chest x-ray Blood Culture(s) Obtained: No Antibiotics given: No Counseled pt/family regarding: lab results, diagnosis, need for follow-up, rad results - Departure Departure Disposition: Home Clinical Impression: Pharyngitis, Bronchitis Condition: Stable Critical Care Time: No Referrals: SHELLEY OLIVA [Primary Care Provider] - Follow up/PCP as directed Additional Instructions: Drink plenty of fluids. Take your medication as prescribed. Call Dr. Oliva's office today to make arrangements for follow-up appointment. Continue your Covid testing protocol at your half-way place of employment. Prescriptions: Prednisone 10 mg [Deltasone 10 mg] 10 mg PO TID #12 tablet Albuterol 8 gm Mdi Hfa [Ventolin Hfa MDI] 8 gm IH Q4H #1 gm
--- NOTE | 2020-12-15 12:41 | XRAY ---
Indication: Cough. Short of breath. Comparison: January 04, 2019. Portable chest again demonstrates normal heart and lungs. Bony thorax intact. No new/acute findings.
[2020-12-15 12:47] LABS: INFLUENZA A NEGATIVE (NEGATIVE); INFLUENZA B NEGATIVE (NEGATIVE)
== END 2020-12-15 13:25 | disposition home or self-care (01) ==
LOC: ED 11:28
DX: J02.9 Acute pharyngitis, unspecified (principal); J40 Bronchitis, not specified as acute or chronic
CPT/HCPCS: 71045; 87400; 87651; 99284

== ENCOUNTER 2021-06-04 12:43 | Emergency (ER) | payer SELFPAY ==
[2021-06-04 13:00] VITALS: BP 141/87
--- NOTE | 2021-06-04 13:09 | ERPHSYRPT ---
- History of Present Illness Source: patient Exam Limitations: no limitations Patient Subjective Stated Complaint: pt here for sore throat, cough, congestion, headache for 2 weeks. Triage Nursing Assessment: pt is ambulatory with a steady gait. pt is A&O x4. pt breathing easily. pt states sore throat, headache, sinus congestion, and cough. pt states symptoms started 2 weeks ago and she just hasn't felt any better. pt has been covid tested within the week and it was negative. Physician History: 55 yo wf w cough/coryza/subjective fever x 1 week. She smoked 1ppd until 2019. N/V/D/melena/hematochezia are all denied. Timing/Duration: weeks (1week) Severity: mild ENT Location: nose Prearrival Treatment: no prearrival treatment Modifying Factors: Improves With: coughing Associated Symptoms: cough, fever, chills, nasal congestion/drainage, No ear pain (R), No ear pain (L), No change in hearing, No dizziness, No drooling, No ear drainage, No facial pain/swelling, No headache, No hearing loss, No jaw pain, No malaise, No motion sickness, No epistaxis, No nasal foreign body, No neck pain, No poor fluid intake, No poor solids intake, No ringing of ears, No swollen glands, No sinus infection, No sore throat, No tooth pain Allergies/Adverse Reactions: codeine Allergy (Intermediate, Verified 06/04/21 13:00) Rash Penicillins Allergy (Intermediate, Verified 06/04/21 13:00) swelling, hives naproxen sodium [From Aleve] Allergy (Mild, Verified 06/04/21 13:00) I WAS GOING TO ibuprofen Allergy (Verified 06/04/21 13:00) clindamycin Adverse Reaction (Verified 06/04/21 13:00) morphine Adverse Reaction (Verified 06/04/21 13:00) increased hr, n/v tramadol Adverse Reaction (Verified 06/04/21 13:00) Hx Tetanus, Diphtheria Vaccination/Date Given: Yes Hx Influenza Vaccination/Date Given: No Hx Pneumococcal Vaccination/Date Given: No Travel Risk - International Travel Have you traveled outside of the country in past 3 weeks: No - Coronavirus Screening Are you exhibiting any of the following symptoms?: Yes Symptoms: Cough: New Onset, Headaches/Body Aches/Fatigue Close contact with a COVID-19 positive Pt in past 14-21 Days: No - Vaccine Status Have you recieved a Covid-19 vaccination: No [employer]: Pf[employer] - Vaccination Dates Date of 2cond Vaccination (if applicable): 10/2020 - Review of Systems Constitutional: No Symptoms, Fever, Chills Eyes: No Symptoms Ears, Nose, & Throat: No Symptoms, Nose Congestion, Nose Discharge Respiratory: Cough Cardiac: No Symptoms Abdominal/Gastrointestinal: No Symptoms Genitourinary Symptoms: No Symptoms Musculoskeletal: No Symptoms Skin: No Symptoms Neurological: No Symptoms Psychological: No Symptoms Endocrine: No Symptoms Hematologic/Lymphatic: No Symptoms Immunological/Allergic: No Symptoms - Past Medical History Pertinent Past Medical History: Yes Neurological History: Seizures ENT History: No Pertinent History Cardiac History: Arrhythmia Respiratory History: Bronchitis Endocrine Medical History: Hypoglycemia Musculoskeletal History: No Pertinent History GI Medical History: Esophageal Disorder History: No Pertinent History Psycho-Social History: Anxiety Female Reproductive Disorders: No Pertinent History - Past Surgical History Past Surgical History: Yes Neuro Surgical History: No Pertinent History Cardiac: No Pertinent History Respiratory: No Pertinent History Gastrointestinal: No Pertinent History Genitourinary: No Pertinent History Musculoskeletal: No Pertinent History Female Surgical History: Dilation & Curettage, Tubal Ligation - Social History Smoking Status: Former smoker How long have you smoked: YRS Exposure to second hand smoke: No Drug Use: none Patient Lives Alone: No Significant Family History: no pertinent family hx - Nursing Vital Signs Nursing Vital Signs: Initial Vital Signs Temperature 97.0 F 06/04/21 12:44 Pulse Rate 71 06/04/21 12:44 Respiratory Rate 20 06/04/21 12:44 Blood Pressure 141/87 06/04/21 12:44 O2 Sat by Pulse Oximetry 96 06/04/21 12:44 Pain Scale Pain Intensity 5 Mildly hypertensive - Physical Exam General Appearance: no apparent distress Eye Exam: bilateral eye: normal inspection, PERRL, EOMI Nasal Exam: normal inspection Neck Exam: normal inspection, non-tender, supple, full range of motion, No trachea midline, No JVD, No limited range of motion Cardiovascular/Respiratory Exam: normal breath sounds, regular rate/rhythm, heart sounds normal, no ecchymosis, no respiratory distress Abdominal Exam: non-tender, soft Neurologic Exam: alert, oriented x 3, cooperative, 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 tested, normal mood/affect, nml cerebellar function, nml station & gait, sensation nml, No motor deficits, No sensory deficit Skin Exam: normal color, warm, dry SpO2 Interpretation: normal SpO2: 96 O2 Delivery: Room Air - Course Nursing assessment & vital signs reviewed: Yes Lab/Rad Data: Laboratory Results 06/04/21 Range/Units 13:14 Influenza Type A Ag NEGATIVE (NEGATIVE) Influenza Type B Ag NEGATIVE (NEGATIVE) RSV (PCR) NEGATIVE (Negative) SARS-CoV-2 (PCR) NEGATIVE (NEGATIVE) - Progress Counseled pt/family regarding: lab results, diagnosis, need for follow-up - Departure Departure Disposition: Home Clinical Impression: Bronchitis Condition: Stable Critical Care Time: No Referrals: SHELLEY MORTENSEN [Primary Care Provider] - Follow up/PCP as directed Instructions: Cough, Adult (DC), Acute Bronchitis, Adult (DC) Additional Instructions: Doxycycline twice a day for 1 week Fluids Follow up with your family MD Return to ER for worsening cough, increasing shortness of breath, or temperature greater than 100.5 Prescriptions: Doxycycline Monohydrate 100 mg PO BID 7 Days #14
[2021-06-04 13:52] LABS: INFLUENZA A NEGATIVE (NEGATIVE); INFLUENZA B NEGATIVE (NEGATIVE); RESPIRATORY SYNCTIAL VIRUS NEGATIVE (Negative); SARS-CoV-2 Xpert Express NEGATIVE (NEGATIVE)
[2021-06-04 14:57] VITALS: PULSE 76; O2SAT 98
== END 2021-06-04 14:51 | disposition home or self-care (01) ==
LOC: ED 12:43
DX: J40 Bronchitis, not specified as acute or chronic (principal); R05.1 Acute cough; R09.81 Nasal congestion; R50.9 Fever, unspecified
CPT/HCPCS: 0241U; 99283

== ENCOUNTER 2022-12-20 12:10 | Emergency (ER) | payer OTHER ==
[2022-12-20 12:32] VITALS: TEMP 98
--- NOTE | 2022-12-20 12:50 | XRAY ---
Indication: Cough. Covid 19 exposure. Comparison: December 15, 2020 Portable chest again demonstrates normal heart and lungs. Bony thorax intact. No new/acute findings.
[2022-12-20 12:57] LABS: Group A Strep NOT DETECTED (NEGATIVE)
--- NOTE | 2022-12-20 12:57 | ERPHSYRPT ---
- History of Present Illness Time Seen by Provider: 12/20/22 12:40 Source: patient Exam Limitations: no limitations Patient Subjective Stated Complaint: C/O cough and sore throat since Triage Nursing Assessment: Patient ambulated back to ER wearing a mask. She is alert and oriented. No SOB. Dry, hacking, non-productive cough is present. Skin tone normal. ELSA BAZZI. 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 Patient states she had similar symptoms when she last had COVID-pneumonia. Patient is requesting a chest x-ray. No other symptomology. No chest pain or shortness of breath. No nausea vomiting or diaphoresis. No generalized weakness. Patient denies syncope. Patient wants to be sure she does not have or is currently developing pneumonia. She voices no other complaints or concerns at this time. Portions of this note were created with voice recognition technology. There may be grammatical, spelling, punctuation or sound alike errors Timing/Duration: day(s) (5 days) Severity: mild Modifying Factors: Improves With: nothing Associated Symptoms: denies symptoms Allergies/Adverse Reactions: codeine Allergy (Intermediate, Verified 12/20/22 12:22) Rash Penicillins Allergy (Intermediate, Verified 12/20/22 12:22) swelling, hives naproxen sodium [From Aleve] Allergy (Mild, Verified 12/20/22 12:22) I WAS GOING TO acetaminophen [From Vicodin] Allergy (Verified 12/20/22 12:22) hydrocodone [From Vicodin] Allergy (Verified 12/20/22 12:22) ibuprofen Allergy (Verified 12/20/22 12:22) clindamycin Adverse Reaction (Verified 12/20/22 12:22) morphine Adverse Reaction (Verified 12/20/22 12:22) increased hr, n/v tramadol Adverse Reaction (Verified 12/20/22 12:22) Home Medications: No Reportable Medications [No Reported Medications] 12/20/22 [History] Hx Tetanus, Diphtheria Vaccination/Date Given: Yes Hx Influenza Vaccination/Date Given: No Hx Pneumococcal Vaccination/Date Given: No Immunizations Up to Date: Yes Travel Risk - International Travel Have you traveled outside of the country in past 3 weeks: No - Coronavirus Screening Are you exhibiting any of the following symptoms?: Yes Symptoms: Cough: New Onset, Shortness of Breath Close contact with a COVID-19 positive Pt in past 14-21 Days: Yes - Vaccine Status Have you recieved a Covid-19 vaccination: No [employer]: Pfizer - Vaccination Dates Date of 2cond Vaccination (if applicable): 10/2020 - Review of Systems Constitutional: No Symptoms, No Fever, No Chills Eyes: No Symptoms Ears, Nose, & Throat: No Symptoms Respiratory: No Symptoms, No Cough, No Dyspnea Cardiac: No Symptoms, No Chest Pain, No Edema, No Syncope Abdominal/Gastrointestinal: No Symptoms, No Abdominal Pain, No Nausea, No Vomiting, No Diarrhea Genitourinary Symptoms: No Symptoms, No Dysuria Musculoskeletal: No Symptoms, No Back Pain, No Neck Pain Skin: No Symptoms, No Rash Neurological: No Symptoms, No Dizziness, No Focal Weakness, No Sensory Changes Psychological: No Symptoms Endocrine: No Symptoms Hematologic/Lymphatic: No Symptoms Immunological/Allergic: No Symptoms All Other Systems: Reviewed and Negative - Past Medical History Pertinent Past Medical History: Yes Neurological History: Seizures ENT History: No Pertinent History Cardiac History: Arrhythmia Respiratory History: Bronchitis Endocrine Medical History: Hypoglycemia Musculoskeletal History: No Pertinent History GI Medical History: Esophageal Disorder History: No Pertinent History Psycho-Social History: Anxiety Female Reproductive Disorders: No Pertinent History - Past Surgical History Past Surgical History: Yes Neuro Surgical History: No Pertinent History Cardiac: No Pertinent History Respiratory: No Pertinent History Gastrointestinal: No Pertinent History Genitourinary: No Pertinent History Musculoskeletal: No Pertinent History Female Surgical History: Dilation & Curettage, Tubal Ligation - Social History Smoking Status: Former smoker How long have you smoked: YRS Exposure to second hand smoke: No Drug Use: none Patient Lives Alone: No Significant Family History: no pertinent family hx - Nursing Vital Signs Nursing Vital Signs: Initial Vital Signs Temperature 98 F 12/20/22 12:22 Pain Scale Pain Intensity 0 - Physical Exam General Appearance: no apparent distress, alert Eye Exam: PERRL/EOMI, eyes nml inspection Ears, Nose, Throat Exam: normal ENT inspection, TMs normal, pharynx normal, moist mucous membranes Neck Exam: normal inspection, non-tender, supple, full range of motion Respiratory Exam: normal breath sounds, lungs clear, No respiratory distress Cardiovascular Exam: regular rate/rhythm, normal heart sounds, normal peripheral pulses Gastrointestinal/Abdomen Exam: soft, normal bowel sounds, No tenderness, No mass Back Exam: normal inspection, normal range of motion, No CVA tenderness, No vertebral tenderness Extremity Exam: normal inspection, normal range of motion, pelvis stable Neurologic Exam: alert, oriented x 3, cooperative, normal mood/affect, nml cerebellar function, nml station & gait, sensation nml, No motor deficits Skin Exam: normal color, warm, dry, No rash Lymphatic Exam: No adenopathy SpO2 Interpretation: normal SpO2: 97 O2 Delivery: Room Air - Course Nursing assessment & vital signs reviewed: Yes - Radiology Exams Chest X-ray Interpretation: Teleradiologist Report (Normal heart lungs and bony thorax. No new or acute findings) Ordered Tests: Active Orders 24 hr Category Date Time Status CHEST 1 VIEW (PORTABLE) Stat Exams 12/20/22 12:15 Completed Lab/Rad Data: Laboratory Results 12/20/22 Range/Units 12:20 Influenza Type A Ag NEGATIVE (NEGATIVE) Influenza Type B Ag NEGATIVE (NEGATIVE) RSV (PCR) NEGATIVE (NEGATIVE) SARS-CoV-2 (PCR) NEGATIVE (NEGATIVE) Group A Strep Antibody NOT DETECTED (NEGATIVE) - Progress Progress: improved Progress Note: Patient is a 57-year-old female presents to our ED specifically for a chest x- ray. Patient has a sore throat as well. Patient has been concerned for possible pneumonia as she has been experiencing some dry cough and sore throat. Rapid strep negative. COVID testing RSV influenza negative. Chest x-ray negative as well. Patient's physical exam essentially nonremarkable. No indication for further work-up. Will discharge patient home. Patient agrees to follow-up with her primary care doctor within 48 hours for reevaluation. Portions of this note were created with voice recognition technology. There may be grammatical, spelling, punctuation or sound alike errors Complexity of problems addressed is moderate acute complicated Complexity of data reviewed and analyzed is moderate. Test ordered test caren monte. Results analyzed and correlated clinically with history and physical examination. Patient's physical exam unremarkable. Testing nonremarkable. Risk of complication and or risk of morbidity/mortality of patient management is low. We will discharge home. Vital stable. Time spent to discharge patient is approximately 10 minutes. Plan of care established via shared decision making. No social determinants of health present to impede follow-up. Portions of this note were created with voice recognition technology. There may be grammatical, spelling, punctuation or sound alike errors 12/20/22 13:29 Counseled pt/family regarding: lab results, diagnosis, need for follow-up, rad results - Departure Departure Disposition: Home Clinical Impression: Cough, Sore throat Condition: Stable Critical Care Time: No Referrals: SHELLEY MORTENSEN [Primary Care Provider] - Follow up/PCP as directed Additional Instructions: Discharge/Care Plan ELMA SALAZAR was seen on 12/20/22 in the Emergency Room. The patient was counseled regarding Diagnosis,Lab results, Imaging studies, need for follow up and when to return to the Emergency Room. Prescriptions given: Discharge Note I have spoken with the patient and/or caregivers. I have explained the patient's condition, diagnosis and treatment plan based on the information available to me at this time. I have answered the patient's and/or caregiver's questions and addressed any concerns. The patient and/or caregivers have as good understanding of the patient's diagnosis, condition and treatment plan as can be expected at this point. The vital signs have been stable. The patient's condition is stable and appropriate for discharge from the emergency department. The patient will pursue further outpatient evaluation with the primary care physician or other designated or consulting physician as outlined in the dischar ge instructions. The patient and/or caregivers are agreeable to this plan of care and follow-up instructions have been explained in detail. The patient and/or caregivers have received these instruction. The patient/and or caregivers are aware that any significant change in condition or worsening of symptoms should prompt an immediate return to this or the closest emergency department or call 911.
[2022-12-20 13:11] LABS: INFLUENZA A NEGATIVE (NEGATIVE); INFLUENZA B NEGATIVE (NEGATIVE); RESPIRATORY SYNCTIAL VIRUS NEGATIVE (NEGATIVE); SARS-CoV-2 Xpert Express NEGATIVE (NEGATIVE)
[2022-12-20 13:32] VITALS: BP 138/85; PULSE 84; RESP 18; O2SAT 97
== END 2022-12-20 13:32 | disposition home or self-care (01) ==
LOC: ED 12:10
DX: J02.9 Acute pharyngitis, unspecified (principal); R05.9 Cough, unspecified; Z86.16 Personal history of COVID-19
CPT/HCPCS: 0241U; 71045; 87651; 99283

== ENCOUNTER 2023-04-15 18:42 | Emergency (ER) | payer OTHER ==
[2023-04-15 19:38] VITALS: RESP 18; TEMP 98.2
--- NOTE | 2023-04-15 20:36 | ERPHSYRPT ---
- History of Present Illness Time Seen by Provider: 04/15/23 20:24 Source: patient Exam Limitations: no limitations Patient Subjective Stated Complaint: pt states that she had covid 3 weeks ago and now she is having tooth pain Triage Nursing Assessment: pt ambulated into the er; pt is axo x4; c/o toothache; pt states 5/10 pain to mouth; pt has multiple broken, missing teeth; multiple caries present; mucus membranes pink and moist; skin PDW; no respiratory distress present; vitals wnl Physician History: For the past 2 days pt has had dental pain and subjective fever; denies nausea, vomiting, earache, sore throat, chest pain, shortness of air. Allergies/Adverse Reactions: codeine Allergy (Intermediate, Verified 04/15/23 19:31) Rash Penicillins Allergy (Intermediate, Verified 04/15/23 19:31) swelling, hives naproxen sodium [From Aleve] Allergy (Mild, Verified 04/15/23 19:31) I WAS GOING TO acetaminophen [From Vicodin] Allergy (Verified 04/15/23 19:31) hydrocodone [From Vicodin] Allergy (Verified 04/15/23 19:31) ibuprofen Allergy (Verified 04/15/23 19:31) clindamycin Adverse Reaction (Verified 04/15/23 19:31) morphine Adverse Reaction (Verified 04/15/23 19:31) increased hr, n/v tramadol Adverse Reaction (Verified 04/15/23 19:31) Hx Tetanus, Diphtheria Vaccination/Date Given: Yes Hx Influenza Vaccination/Date Given: No Hx Pneumococcal Vaccination/Date Given: No Travel Risk - International Travel Have you traveled outside of the country in past 3 weeks: No - Coronavirus Screening Are you exhibiting any of the following symptoms?: No Close contact with a COVID-19 positive Pt in past 14-21 Days: No - Vaccine Status Have you recieved a Covid-19 vaccination: No [employer]: [employer] - Vaccination Dates Date of 2cond Vaccination (if applicable): 10/2020 - Review of Systems Constitutional: Fever Ears, Nose, & Throat: Mouth Pain Respiratory: No Dyspnea Cardiac: No Chest Pain Abdominal/Gastrointestinal: No Abdominal Pain, No Nausea, No Vomiting Skin: No Rash - Past Medical History Pertinent Past Medical History: Yes Neurological History: Seizures ENT History: No Pertinent History Cardiac History: Arrhythmia Respiratory History: Bronchitis Endocrine Medical History: Hypoglycemia Musculoskeletal History: No Pertinent History GI Medical History: Esophageal Disorder History: No Pertinent History Psycho-Social History: Anxiety Female Reproductive Disorders: No Pertinent History - Past Surgical History Past Surgical History: Yes Neuro Surgical History: No Pertinent History Cardiac: No Pertinent History Respiratory: No Pertinent History Gastrointestinal: No Pertinent History Genitourinary: No Pertinent History Musculoskeletal: No Pertinent History Female Surgical History: Dilation & Curettage, Tubal Ligation - Social History Smoking Status: Former smoker How long have you smoked: YRS Exposure to second hand smoke: No Drug Use: none Patient Lives Alone: No Significant Family History: no pertinent family hx - Nursing Vital Signs Nursing Vital Signs: Initial Vital Signs Temperature 98.2 F 04/15/23 19:32 Pulse Rate 89 04/15/23 19:32 Respiratory Rate 18 04/15/23 19:32 Blood Pressure 137/87 04/15/23 19:32 O2 Sat by Pulse Oximetry 97 04/15/23 19:32 Pain Scale Pain Intensity 5 - Physical Exam General Appearance: alert Eye Exam: bilateral eye: PERRL, EOMI Ear Exam: bilateral ear: TM normal Nasal Exam: normal inspection Throat Exam: dental tenderness (a broken right maxillary 2nd premolar has erythematous, tender and mildly edematous surrounding gum) Neck Exam: normal inspection Cardiovascular/Respiratory Exam: normal breath sounds, heart sounds normal SpO2 Interpretation: normal SpO2: 97 O2 Delivery: Room Air - Course Nursing assessment & vital signs reviewed: Yes - Progress Counseled pt/family regarding: diagnosis - Departure Departure Disposition: Home Clinical Impression: Tooth abscess Condition: Stable Critical Care Time: No Referrals: SHELLEY MORTENSEN [Primary Care Provider] - Follow up/PCP as directed Instructions: Tooth Abscess (DC) Additional Instructions: Follow up with dentist tomorrow. Prescriptions: Azithromycin 250 mg [Zithromax 250 MG TABLET] 250 mg PO ZPACK #6 tablet
[2023-04-15] MEDS ORDERED: Zithromax 250 MG TABLET ONE (20:41)
[2023-04-15] MEDS: Zithromax 250 MG TABLET PO ONE (20:42)
[2023-04-15 20:49] VITALS: BP 166/94; PULSE 80; O2SAT 99
== END 2023-04-15 20:56 | disposition home or self-care (01) ==
LOC: ED 18:42
DX: K04.7 Periapical abscess without sinus (principal); R50.9 Fever, unspecified
CPT/HCPCS: 99281; A9270-GY